=== PATIENT | female | born 1975 | race Caucasian/White ===

== ENCOUNTER 2022-08-29 11:35 | Observation (INO) | payer BC ==
[2022-08-29] MEDS ORDERED: ASPIRIN 81 MG PO STA (12:03)
--- NOTE | 2022-08-29 12:08 | ED ---
General Adult HPI - General Chief complaint: Chest Pain Stated complaint: chest pain Time Seen by Provider: 08/29/22 11:56 Source: patient, RN notes reviewed, old records reviewed Mode of arrival: wheelchair Limitations: no limitations - History of Present Illness Initial comments: This is a nontoxic appearing tearful 46-year-old female that presents with complaints of sudden onset of sharp stabbing pain approximately an hour ago when at work. Patient states she became nauseated, no vomiting. Pain radiated to front of her neck and her left upper back. Currently pain under left breast. States that she history of TIA 2020 in [place] and GERD. No family history of cardiac disease, denies any difficulty breathing, is a nonsmoker. -: hour(s) (1) Location: chest Radiation: back, neck Severity scale (1-10): 5 Quality: stabbing, dull (Initially sharp and stabbing, now heaviness and dull) Consistency: constant Improves with: none Associated Symptoms: nausea/vomiting (no vomiting) Treatments Prior to Arrival: none - Related Data Home Medications Medication Instructions Recorded Confirmed Escitalopram [Lexapro] 10 mg PO DAILY 08/29/22 08/29/22 Famotidine [Pepcid] 20 mg PO BID 08/29/22 08/29/22 Allergies Allergy/AdvReac Type Severity Reaction Status Date / Time No Known Allergies Allergy Verified 08/29/22 13:13 Review of Systems ROS Statement: Those systems with pertinent positive or pertinent negative responses have been documented in the HPI. ROS Other: All systems not noted in ROS Statement are negative. Past Medical History Past Medical History: CVA/TIA History of Any Multi-Drug Resistant Organisms: None Reported Past Surgical History: Cholecystectomy, Tubal Ligation Past Psychological History: No Psychological Hx Reported Smoking Status: Never smoker Past Alcohol Use History: None Reported Past Drug Use History: None Reported General Exam Limitations: no limitations General appearance: alert, in no apparent distress Head exam: Present: atraumatic Eye exam: Absent: scleral icterus, periorbital swelling ENT exam: Present: mucous membranes moist Neck exam: Present: normal inspection. Absent: tenderness, meningismus Respiratory exam: Present: normal lung sounds bilaterally. Absent: respiratory distress, wheezes, rales, rhonchi, stridor, accessory muscle use Cardiovascular Exam: Present: regular rate GI/Abdominal exam: Present: soft, normal bowel sounds. Absent: distended, tenderness, guarding, rebound, rigid Extremities exam: Present: normal capillary refill. Absent: pedal edema Back exam: Absent: tenderness, CVA tenderness (R), CVA tenderness (L), rash noted Neurological exam: Present: alert, oriented X3 Psychiatric exam: Present: normal affect, normal mood (tearful) Skin exam: Present: warm, dry, normal color. Absent: cyanosis, diaphoretic, petechiae, pallor Course Vital Signs 08/29/22 08/29/22 08/29/22 11:37 12:17 13:51 Temperature 97.4 F L Pulse Rate 70 74 84 Pulse Rate [ 74 Mounter Saxophones ] Respiratory 22 18 18 Rate Blood Pressure 161/99 138/95 112/71 Blood Pressure [Right Arm] O2 Sat by Pulse 99 98 94 L Oximetry 08/29/22 08/29/22 14:31 14:40 Temperature 98.1 F 97.9 F Pulse Rate 76 Pulse Rate [ 71 Mounter Saxophones ] Respiratory 18 16 Rate Blood Pressure 118/80 Blood Pressure 110/71 [Right Arm] O2 Sat by Pulse 97 94 L Oximetry EKG Findings - EKG Results: EKG: sinus rhythm (Ventricular rate 67, MN interval 0.45, QRS 0.91, QTC 0.465; normal axis; T wave inversions V1,V2, V3, no old EKG to compare) Medical Decision Making - Medical Decision Making Patient complained of stabbing chest pain radiating to neck and back with nausea lasting more than 20 minutes. EKG shows T-wave inversions in V1, V2, V3, no old EKG to compare. She'll be placed in observation and cardiology consult. I discussed with Dr. mcclellan Was pt. sent in by a medical professional or institution? @ -No Did you speak to anyone other than the patient for history? @ -No Did you review nursing and triage notes? @ -Yes I agree Were old charts reviewed? @ -No Differential Diagnosis? @ -Differential Chest Pain: Stable Angina, Unstable Angina, STEMI, NSTEMI Aortic Dissection, Pneumothorax, Musculoskeletal, Esophageal Spasm GERD, Cholecystitis, Pancreatitis, Zoster, this is not meant to be an all-inclusive list. EKG interpreted by me (3pts min.)? @ -Yes as above X-rays interpreted by me (1pt min.)? @ Chest x-ray interpreted by me shows no evidence of consolidation, heart normal size no evidence of tracheal deviation. Radiologist interpretation no a cute process. What testing was considered but not performed? (CT, X-rays, U/S, labs)? Why? @None What meds were considered but not given? Why? @ -Heparin was considered, patient has no active chest pain at this time, low heart score, no cardiac history Did you discuss the management of the patient with other professionals? @ -no Did you reconcile home meds? @ -Yes Was smoking cessation discussed for >3mins.? @ -No Was critical care preformed (if so, how long)? @ -No Were there social determinants of health that impacted care today? How? (Homelessness, low income, unemployed, alcoholism, drug addiction, transportation, low edu. Level, literacy, decrease access to med. care, [facility], rehab)? @ -None Was there de-escalation of care discussed even if they declined? (Discuss DNR or withdrawal of care, Hospice)? @ -No What co-morbidities impacted this encounter? (DM, HTN, Smoking, COPD, CAD, Cancer, CVA, Hep., AIDS, mental health diagnosis, sleep apnea, morbid obesity)? @ -TIA Was patient admitted / discharged? @ -Admitted Undiagnosed new problem with uncertain prognosis? @ -[none] Drug Therapy requiring intensive monitoring for toxicity (Heparin, Nitro, Insulin, Cardizem)? @ -[none] Were any procedures done? @ -No Diagnosis/symptom? @ -Chest pain Acute, or Chronic, or Acute on Chronic? @ -Acute Uncomplicated (without systemic symptoms) or Complicated (systemic symptoms)? @ -Uncomplicated Side effects of treatment? @ -[none] Exacerbation, Progression, or Severe Exacerbation] @ -[no] Poses a threat to life or bodily function? @ -[no] - Lab Data Result diagrams: 08/29/22 11:52 08/29/22 11:52 Lab Results 08/29/22 08/29/22 08/29/22 Range/Units 11:52 11:52 11:52 WBC 6.1 (3.8-10.6) k/uL RBC 4.98 (3.80-5.40) m/uL Hgb 15.4 (11.4-16.0) gm/dL Hct 44.7 (34.0-46.0) % MCV 89.8 (80.0-100.0) fL MCH 30.9 (25.0-35.0) pg MCHC 34.4 (31.0-37.0) g/dL RDW 12.2 (11.5-15.5) % Plt Count 294 (150-450) k/uL MPV 7.5 Neutrophils % 58 % Lymphocytes % 31 % Monocytes % 5 % Eosinophils % 4 % Basophils % 1 % Neutrophils # 3.6 (1.3-7.7) k/uL Lymphocytes # 1.9 (1.0-4.8) k/uL Monocytes # 0.3 (0-1.0) k/uL Eosinophils # 0.2 (0-0.7) k/uL Basophils # 0.0 (0-0.2) k/uL PT 10.0 (9.0-12.0) sec INR 0.9 (<1.2) APTT 25.6 (22.0-30.0) sec Sodium (137-145) mmol/L Potassium (3.5-5.1) mmol/L Chloride (98-107) mmol/L Carbon Dioxide (22-30) mmol/L Anion Gap mmol/L BUN (7-17) mg/dL Creatinine (0.52-1.04) mg/dL Est GFR (CKD-EPI)AfAm (>60 ml/min/1.73 sqM) Est GFR (CKD-EPI)NonAf (>60 ml/min/1.73 sqM) Glucose (74-99) mg/dL Calcium (8.4-10.2) mg/dL Magnesium (1.6-2.3) mg/dL Total Bilirubin (0.2-1.3) mg/dL AST (14-36) U/L ALT (4-34) U/L Alkaline Phosphatase (38-126) U/L Troponin I (0.000-0.034) ng/mL Total Protein (6.3-8.2) g/dL Albumin (3.5-5.0) g/dL Amylase (30-110) U/L Lipase (23-300) U/L Urine Color Colorless Urine Appearance Clear (Clear) Urine pH 5.5 (5.0-8.0) Ur Specific [place] 1.004 (1.001-1.035) Urine Protein Negative (Negative) Urine Glucose (UA) Negative (Negative) Urine Ketones Negative (Negative) Urine Blood Negative (Negative) Urine Nitrite Negative (Negative) Urine Bilirubin Negative (Negative) Urine Urobilinogen <2.0 (<2.0) mg/dL Ur Leukocyte Esterase Negative (Negative) 08/29/22 08/29/22 Range/Units 11:52 11:52 WBC (3.8-10.6) k/uL RBC (3.80-5.40) m/uL Hgb (11.4-16.0) gm/dL Hct (34.0-46.0) % MCV (80.0-100.0) fL MCH (25.0-35.0) pg MCHC (31.0-37.0) g/dL RDW (11.5-15.5) % Plt Count (150-450) k/uL MPV Neutrophils % % Lymphocytes % % Monocytes % % Eosinophils % % Basophils % % Neutrophils # (1.3-7.7) k/uL Lymphocytes # (1.0-4.8) k/uL Monocytes # (0-1.0) k/uL Eosinophils # (0-0.7) k/uL Basophils # (0-0.2) k/uL PT (9.0-12.0) sec INR (<1.2) APTT (22.0-30.0) sec Sodium 138 (137-145) mmol/L Potassium 4.0 (3.5-5.1) mmol/L Chloride 104 (98-107) mmol/L Carbon Dioxide 29 (22-30) mmol/L Anion Gap 5 mmol/L BUN 14 (7-17) mg/dL Creatinine 0.73 (0.52-1.04) mg/dL Est GFR (CKD-EPI)AfAm >90 (>60 ml/min/1.73 sqM) Est GFR (CKD-EPI)NonAf >90 (>60 ml/min/1.73 sqM) Glucose 89 (74-99) mg/dL Calcium 8.9 (8.4-10.2) mg/dL Magnesium 2.0 (1.6-2.3) mg/dL Total Bilirubin 0.5 (0.2-1.3) mg/dL AST 33 (14-36) U/L ALT 46 H (4-34) U/L Alkaline Phosphatase 78 (38-126) U/L Troponin I <0.012 (0.000-0.034) ng/mL Total Protein 7.2 (6.3-8.2) g/dL Albumin 4.2 (3.5-5.0) g/dL Amylase 82 (30-110) U/L Lipase 138 (23-300) U/L Urine Color Urine Appearance (Clear) Urine pH (5.0-8.0) Ur Specific [place] (1.001-1.035) Urine Protein (Negative) Urine Glucose (UA) (Negative) Urine Ketones (Negative) Urine Blood (Negative) Urine Nitrite (Negative) Urine Bilirubin (Negative) Urine Urobilinogen (<2.0) mg/dL Ur Leukocyte Esterase (Negative) Disposition Clinical Impression: Chest pain Disposition: ADMITTED IP TO THIS [facility] Decision Date: 08/29/22 Decision Time: 12:54
[2022-08-29 12:11] LABS: Basophils % (A) 1 %; Eosinophils # (A) 0.2 k/uL (0-0.7); Eosinophils % (A) 4 %; HCT 44.7 % (34.0-46.0); HGB 15.4 gm/dL (11.4-16.0); Lymphocytes # (A) 1.9 k/uL (1.0-4.8); Lymphocytes % (A) 31 %; MCH 30.9 pg (25.0-35.0); MCHC 34.4 g/dL (31.0-37.0); MCV 89.8 fL (80.0-100.0); Mean Platelet Volume 7.5; Monocytes # (A) 0.3 k/uL (0-1.0); Monocytes % (A) 5 %; Neutrophils # (A) 3.6 k/uL (1.3-7.7); Neutrophils % (A) 58 %; Platelet Count 294 k/uL (150-450); RBC 4.98 m/uL (3.80-5.40); RDW 12.2 % (11.5-15.5); WBC 6.1 k/uL (3.8-10.6)
[2022-08-29] MEDS ORDERED: NITROGLYCERIN OINT 1 INCH/GM PACKET TOPICAL STA (12:16)
[2022-08-29 12:31] LABS: ALT 46 U/L (4-34); AST 33 U/L (14-36); African American GFR (CKD) >90 (>60 ml/min/1.73 sqM); Albumin 4.2 g/dL (3.5-5.0); Alkaline Phosphatase 78 U/L (38-126); Amylase 82 U/L (30-110); Anion Gap 5 mmol/L; Blood Urea Nitrogen 14 mg/dL (7-17); Calcium 8.9 mg/dL (8.4-10.2); Carbon Dioxide 29 mmol/L (22-30); Chloride 104 mmol/L (98-107); Glucose 89 mg/dL (74-99); Lipase 138 U/L (23-300); Non-African American GFR(CKD) >90 (>60 ml/min/1.73 sqM); Sodium 138 mmol/L (137-145); Total Bilirubin 0.5 mg/dL (0.2-1.3); Total Protein 7.2 g/dL (6.3-8.2)
[2022-08-29 12:35] LABS: INR 0.9 (<1.2); Partial Thromboplastin Time 25.6 sec (22.0-30.0)
[2022-08-29 12:46] LABS: Appearance,Urine Clear (Clear); Bilirubin,Urine Negative (Negative); Blood,Urine Negative (Negative); Color,Urine Colorless; Glucose,Urine (UA) Negative (Negative); Ketones,Urine Negative (Negative); Leukocyte Esterase,Urine Negative (Negative); Nitrite,Urine Negative (Negative); PH, Urine 5.5 (5.0-8.0); Protein,Urine Negative (Negative); Specific Gravity,Urine 1.004 (1.001-1.035); Urobilinogen,Urine <2.0 mg/dL (<2.0)
--- NOTE | 2022-08-29 12:47 | XR ---
EXAMINATION TYPE: XR chest 2V DATE OF EXAM: 08/29/2022 COMPARISON: NONE TECHNIQUE: PA and lateral views submitted. HISTORY: Left side chest pain FINDINGS: The lungs are clear and there is no pneumothorax, pleural effusion, or focal pneumonia. Heart size normal and no overt failure. Osseous structures demonstrate hypertrophic and degenerative changes of the spine. IMPRESSION: 1. No acute process.
[2022-08-29] MEDS ORDERED: NALOXONE 0.4 MG/ML 1 ML VIAL IV PRN (12:54)
[2022-08-29] MEDS ORDERED: PANTOPRAZOLE 40 MG/10 ML VIAL IV SCH (13:00)
[2022-08-29] MEDS: ACETAMINOPHEN TAB 325 MG TAB PO PRN ×2 (13:54→23:01)
--- NOTE | 2022-08-29 17:49 | P.HPIM ---
History of Present Illness H&P Date: 08/29/22 Chief Complaint: Chest pain This is a very pleasant 46-year-old patient follows with Dr. Cherry franco. Takes medication for anxiety and reflux. Patient is just had an ultrasound of the lower abdomen to rule out diverticulosis/screening for cancer. Is a bit anxious about the same. This morning she was at her desk when she suddenly felt a very sharp pain in the clavicle area. Also into her jaw. And heaviness that lasted. Fingertips became numb. There is no perspiration or shortness of breath. Symptoms lasted for about an hour. No dizziness no lightheadedness. Denies lifting any heavy. Patient does get bothered by significant reflux. Has put on some weight rec ently. No prior cardiac history. Fair exercise tolerance. Review of systems: GEN.: None EYES: None HEENT: None NECK: None RESPIRATORY: None CARDIOVASCULAR: As above GASTROINTESTINAL: Uncontrolled reflux GENITOURINARY: None MUSCULOSKELETAL: None LYMPHATICS: None HEMATOLOGICAL: None PSYCHIATRY: Anxious NEUROLOGICAL: None Past medical history to include: Anxiety, panic attack, reflux Social history: . 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 No smoking or alcohol. Physical examination: VITAL SIGNS: 97.9, 71, 16, 110/71, 94% room air GENERAL: Average built, sitting up, comfortable. EYES: Pupils equal. Conjunctiva normal. HEENT: External appearance of nose and ears normal, oral cavity grossly normal. NECK: JVD not raised; masses not palpable. HEART: First and second heart sounds are normal; no edema. LUNGS: Respiratory rate normal; clear to auscultation. ABDOMEN: Soft, nontender, liver spleen not palpable, no masses palpable. PSYCH: Alert and oriented x3; mood and affect normal. MUSCULOSKELETAL:No Clubbing/cyanosis;muscles-grossly intact NEUROLOGICAL: Cranial nerves grossly intact; no facial asymmetry, power and sensation grossly intact. LYMPHATICS: No lymph nodes palpable in the axilla and neck INVESTIGATIONS, reviewed in the clinical context: White count 6.1 hemoglobin 15.4 platelets 294 potassium 4 creatinine 0.73 Troponin I 2 less than 0.012 EKG tracing personally reviewed by me-low QRS voltage. Sinus rhythm. Rate 67. Chest x-ray film personally reviewed by me: Lung michelle clear Assessment and plan: -Anterior chest wall pain. Could be muscular schedule. Could be anxiety attack. Rule out a cardiac cause. Initial troponin 2 negative. Telemetry. Consult cardiology -GERD, uncontrolled Change Pepcid to Protonix. Discussed with patient. Outpatient EGD. -Anxiety disorder not otherwise specified Lexapro Protonix. Aspirin. Telemetry. Cartilage E consult. Discussed with the patient daughter the bedside. Questions answered. Past Medical History Past Medical History: CVA/TIA History of Any Multi-Drug Resistant Organisms: None Reported Past Surgical History: Cholecystectomy, Tubal Ligation Past Psychological History: No Psychological Hx Reported Smoking Status: Never smoker Past Alcohol Use History: None Reported Past Drug Use History: None Reported Medications and Allergies Home Medications Medication Instructions Recorded Confirmed Type Escitalopram [Lexapro] 10 mg PO DAILY 08/29/22 08/29/22 History Famotidine [Pepcid] 20 mg PO BID 08/29/22 08/29/22 History Allergies Allergy/AdvReac Type Severity Reaction Status Date / Time No Known Allergies Allergy Verified 08/29/22 13:13 Physical Exam Vitals: Vital Signs Temp Pulse Pulse Resp BP BP Pulse Ox 08/29/22 14:40 97.9 F 71 16 110/71 94 L 08/29/22 14:31 98.1 F 76 18 118/80 97 08/29/22 13:51 84 18 112/71 94 L 08/29/22 12:17 74 74 18 138/95 98 08/29/22 11:37 97.4 F L 70 22 161/99 99 Intake and Output 08/29/22 08/29/22 08/29/22 06:59 14:59 22:59 Other: # Voids 1 Weight 81.647 kg 81.647 kg Results CBC & Chem 7: 08/29/22 11:52 08/29/22 11:52 Labs: Abnormal Lab Results - Last 24 Hours (Table) 08/29/22 Range/Units 11:52 ALT 46 H (4-34) U/L Thrombosis Risk Factor Assmnt - Choose All That Apply Any of the Below Risk Factors Present?: Yes Each Factor Represents 1 point: Age 41-60 years, Obesity (BMI >25) Other Risk Factors: No Thrombosis Risk Factor Assessment Total Risk Factor Score: 2 Thrombosis Risk Factor Assessment Level: Low Risk
[2022-08-29] MEDS: PANTOPRAZOLE 40 MG TABLET PO SCH (19:18)
[2022-08-30 03:00] VITALS: RESP 16
[2022-08-30] MEDS: PANTOPRAZOLE 40 MG TABLET PO SCH (06:08)
--- NOTE | 2022-08-30 07:06 | CA ---
Transthoracic Echo Report Name: Isis Bender Age: 46 Gender: F : 1975 Exam Date: 08/29/2022 14:06 Exam Location: [facility] Ht (in): 67 Wt (lb): 180 Ordering Physician: Sin Jones Attending/Referring Phys: Shop Fitter Jane Dueñas RDCS Procedure CPT: Indications: Chest Pain Cardiac Hx: Technical Quality: Contrast 1: Total Dose (mL): Contrast 2: Total Dose (mL): MEASUREMENTS (Male / Female) Normal Values 2D ECHO LV Diastolic Diameter PLAX 4.3 cm 4.2 - 5.9 / 3.9 - 5.3 cm LV Systolic Diameter PLAX 3.3 cm IVS Diastolic Thickness 1.1 cm 0.6 - 1.0 / 0.6 - 0.9 cm LVPW Diastolic Thickness 1.7 cm 0.6 - 1.0 / 0.6 - 0.9 cm LV Relative Wall Thickness 0.6 RV Internal Dim ED PLAX 3.3 cm LA Systolic Diameter LX 3.4 cm 3.0 - 4.0 / 2.7 - 3.8 cm M-MODE Aortic Root Diameter MM 2.8 cm LA Systolic Diameter MM 3.6 cm LA Ao Ratio MM 1.3 MV E Point Septal Separation 0.4 cm AV Cusp Separation MM 2.1 cm DOPPLER MV Area PHT 3.0 cm??? Mitral E Point Velocity 53.9 cm/s Mitral A Point Velocity 86.7 cm/s Mitral E to A Ratio 0.6 MV Deceleration Time 254.8 ms MV E' Velocity 6.6 cm/s Mitral E to MV E' Ratio 8.2 FINDINGS Left Ventricle Mildly increased septal wall thickness. Left ventricular cavity size normal. Left ventricular ejection fraction is estimated at 55 %. Right Ventricle Normal right ventricular size and function. Right ventricular systolic pressure within normal limits. Right Atrium Normal right atrial size. Left Atrium Normal left atrial size. Mitral Valve Structurally normal mitral valve. Mild mitral regurgitation. Aortic Valve Trileaflet aortic valve. Tricuspid Valve Structurally normal tricuspid valve. Mild tricuspid regurgitation. Pulmonic Valve Structurally normal pulmonic valve. Pericardium Echo free space anterior to the right ventricle likely represents a fat pad. Aorta Normal size aortic root and proximal ascending aorta. CONCLUSIONS Normal LV size and systolic function. Mild mitral and tricuspid insufficiency. No pericardial effusion Previewed by: Dr. Zafar Castle MD (Electronically Signed) Final Date: 30 August 2022 07:06
[2022-08-30 07:37] VITALS: PULSE 66; TEMP 98.1
[2022-08-30] MEDS ORDERED: SODIUM CHLORIDE 0.9% 1,000 ML IV SCH (08:30)
[2022-08-30] MEDS ORDERED: ASPIRIN 81 MG PO SCH (09:00)
[2022-08-30] MEDS ORDERED: ESCITALOPRAM 10 MG TAB PO SCH (09:00)
[2022-08-30] MEDS: ACETAMINOPHEN TAB 325 MG TAB PO PRN (09:23)
--- NOTE | 2022-08-30 09:32 | P.CRDCN ---
History of Present Illness Consult date: 08/30/22 Consult reason: chest pain History of present illness: History of present illness: This is a 46-year-old female with no previous cardiac history. She has never had a cardiac catheterization nor stress test. She has a past medical history significant for TIA in October 2020 in [place]. She states the cause was not identified. She also has a past medical history of GERD and depression. No history of diabetes. Patient states that she was sitting at her desk at work and felt heaviness in her mid chest that went up into her neck and felt like her neck was being squeezed. EKG nonspecific changes T wave abnormality 2 Echocardiogram reveals EF of 55%. Mild mitral and tricuspid insufficiency. Chest x-ray: No acute process CBC, INR, BMP within normal limits. ALT 46. Troponin negative 2. Lipase 138. Urinalysis negative. No home cardiac medications Review Of Systems: At the time of my evaluation: Constitutional: No fever, no chills. No weakness, fatigue or lethargy. EENT: No headache. No dizziness. Lungs: No shortness of breath, cough, no sputum production. No wheezing. Cardiovascular: No chest pain, no lower extremity edema. No palpitations. No paroxysmal nocturnal dyspnea. No orthopnea. No lightheadedness or dizziness. No syncopal episodes. Abdominal: No abdominal pain. No nausea, vomiting. No diarrhea. No constipation. No bloody or tarry stools. Genitourinary: No dysuria.. No urinary retention. Musculoskeletal: No myalgias. No muscle weakness, no frequent falls. No back pain. No neck pain. Integumentary: No wounds. No rash. No unusual bruising. Neurologic: No aphasia. No facial droop. No change in mentation. No head injury. No headache. Psychiatric: No depression. No anxiety. Endocrine: No abnormal blood sugars. Physical examination: Gen: This is an obese 46-year-old female. She sitting up her recliner and appears comfortable and in no acute distress VS: reviewed HEENT: Head is atraumatic, normocephalic. Pupils equal, round. Sclerae is anicteric. NECK: Supple. No JVD. No lymphadenopathy. No thyromegaly. LUNGS: Clear to auscultation. No wheezes or rhonchi. No intercostal retractions. HEART: Regular rate and rhythm. No murmur. ABDOMEN: Soft. Bowel sounds are present. No masses. No tenderness. EXTREMITIES: No pedal edema. No calf tenderness. NEUROLOGICAL: Patient is awake, alert and oriented x3. Cranial nerves 2 through 12 are grossly intact. Assessment: Chest pain with negative troponins, nonspecific T-wave abnormalities, acute coronary syndrome ruled out Gastroesophageal reflux disease Plan: Start patient on IV fluids 0.9 normal saline at 100 mL/h Obtain stress echo today If stress test is within normal limits, patient is cleared for discharge home today Thank you kindly for this consultation. Nurse practitioner note has been reviewed, I agree with documented findings and plan of care. Patient was seen and examined. Past Medical History Past Medical History: CVA/TIA History of Any Multi-Drug Resistant Organisms: None Reported Past Surgical History: Cholecystectomy, Tubal Ligation Past Psychological History: No Psychological Hx Reported Smoking Status: Never smoker Past Alcohol Use History: None Reported Past Drug Use History: None Reported Medications and Allergies Home Medications Medication Instructions Recorded Confirmed Type Escitalopram [Lexapro] 10 mg PO DAILY 08/29/22 08/29/22 History Famotidine [Pepcid] 20 mg PO BID 08/29/22 08/29/22 History Allergies Allergy/AdvReac Type Severity Reaction Status Date / Time No Known Allergies Allergy Verified 08/29/22 13:13 Physical Exam Vitals: Vital Signs Temp Pulse Pulse Resp BP BP Pulse Ox 08/30/22 07:00 98.1 F 66 16 105/70 95 08/30/22 02:46 98.2 F 51 L 16 97/59 92 L 08/29/22 20:00 98.2 F 72 18 107/73 96 08/29/22 14:40 97.9 F 71 16 110/71 94 L 08/29/22 14:31 98.1 F 76 18 118/80 97 08/29/22 13:51 84 18 112/71 94 L 08/29/22 12:17 74 74 18 138/95 98 08/29/22 11:37 97.4 F L 70 22 161/99 99 Intake and Output 08/29/22 08/30/22 08/30/22 22:59 06:59 14:59 Other: # Voids 1 2 Weight 81.647 kg Results 08/29/22 11:52 01/10/23 11:52 Cardiac Enzymes 08/29/22 08/29/22 08/29/22 Range/Units 11:52 11:52 15:04 AST 33 (14-36) U/L Troponin I <0.012 <0.012 (0.000-0.034) ng/mL Coagulation 08/29/22 Range/Units 11:52 PT 10.0 (9.0-12.0) sec APTT 25.6 (22.0-30.0) sec CBC 08/29/22 Range/Units 11:52 WBC 6.1 (3.8-10.6) k/uL RBC 4.98 (3.80-5.40) m/uL Hgb 15.4 (11.4-16.0) gm/dL Hct 44.7 (34.0-46.0) % Plt Count 294 (150-450) k/uL Comprehensive Metabolic Panel 08/29/22 Range/Units 11:52 Sodium 138 (137-145) mmol/L Potassium 4.0 (3.5-5.1) mmol/L Chloride 104 (98-107) mmol/L Carbon Dioxide 29 (22-30) mmol/L BUN 14 (7-17) mg/dL Creatinine 0.73 (0.52-1.04) mg/dL Glucose 89 (74-99) mg/dL Calcium 8.9 (8.4-10.2) mg/dL AST 33 (14-36) U/L ALT 46 H (4-34) U/L Alkaline Phosphatase 78 (38-126) U/L Total Protein 7.2 (6.3-8.2) g/dL Albumin 4.2 (3.5-5.0) g/dL Current Medications Generic Name Dose Route Start Last Admin Trade Name Freq PRN Reason Stop Dose Admin Acetaminophen 650 mg 08/29/22 12:54 08/29/22 23:01 Acetaminophen Tab 325 Mg Tab PO 650 mg Q6HR PRN Administration Mild Pain or Fever > 100.5 Aspirin 81 mg 08/30/22 09:00 Aspirin 81 Mg PO DAILY [facility] Escitalopram Oxalate 10 mg 08/30/22 09:00 Escitalopram 10 Mg Tab PO DAILY [facility] Naloxone HCl 0.2 mg 08/29/22 12:54 Naloxone 0.4 Mg/Ml 1 Ml Vial IV Q2M PRN Opioid Reversal Pantoprazole Sodium 40 mg 08/29/22 18:00 08/30/22 06:08 Pantoprazole 40 Mg Tablet PO 40 mg AC-BID MARTIN Administration Intake and Output 08/29/22 08/30/22 08/30/22 22:59 06:59 14:59 Other: # Voids 1 2 Weight 81.647 kg 08/29/22 11:52 08/29/22 11:52
--- NOTE | 2022-08-30 13:11 | CA ---
Stress Echo Report Isis Bender Age: 46 Gender: F : 1975 Exam Date: 08/30/2022 11:26 Exam Location: [facility] Ht (in): 67 Wt (lb): 180 Ordering Physician: Eloisa Glover Referring Physician: [id number] Headley Rotary Cutter Feeder: RAMÓN Technologist Procedure CPT: Indication: CP ICD-9 Codes: Rhythm: Patient History: CHEST PAIN, NUMBNESS IN FACE/NECK PRIOR HX OF CVA, PRIOR SMOKER (QUIT 2 YEARS AGO) Cardiac Medications: Medications in past 24 hours: Contrast: Stress Results Protocol: Nicolas Total dose(mL): Exercise Duration (min:sec): 7:[address] Depression (mm): Angina Score: Cole Score: METS: 9.1 Resting HR: 95 Resting BP: 104 / 72 Peak HR: 157 Peak BP: 151 / 65 Max Predicted HR: 173 91 % Max Predicted HR Target HR: 147 Double Product: [id number] Stress Summary: BP Response: Reason for Termination: TARGET HR/PEAK EXERTION Cardiac Symptoms: NO SYMPTOMS ECG Analysis Resting ECG: Stress ECG: Arrhythmia: Echo Analysis Resting Echo: Peak Echo Analysis: MEASUREMENTS (Male/Female) Normal Values CONCLUSIONS Baseline EKG revealed normal sinus rhythm without significant ST-T changes patient walked for 7 minutes 39 seconds and achieved a maximal heart rate of 157 bpm which is more than 90% of predicted maximal. She did not have any angina. There was no arrhythmia there were no EKG changes to indicate ischemia. This is a negative stress test by EKG criteria with mild T-wave changes to begin with. Baseline echo images revealed normal wall motion wall thickening of all segments. At peak exercise there was good augmentation of left ventricular wall motion wall thickening of all segments suggesting that there is no evidence of any stress-induced ischemia on this study Dr. Zafar Castle MD (Electronically Signed) Final Date: 30 August 2022 13:10
[2022-08-30 14:31] VITALS: BP 113/78
--- NOTE | 2022-08-30 17:31 | P.DS ---
Providers Date of admission: 08/29/22 12:41 Expected date of discharge: 08/30/22 Attending physician: Scott Johnson Consults: 08/29/22 12:54 Consult Physician Routine Consulting Provider: Refugio Ponce Consult Reason/Comments: chest pain Do you want consulting provider notified?: Yes, Notify in am Primary care physician: Cherry Batres [facility] Course: Chief Complaint: Chest pain This is a very pleasant 46-year-old patient follows with Dr. Cherry franco. Takes medication for anxiety and reflux. Patient is just had an ultrasound of the lower abdomen to rule out diverticulosis/screening for cancer. Is a bit anxious about the same. This morning she was at her desk when she suddenly felt a very sharp pain in the clavicle area. Also into her jaw. And heaviness that lasted. Fingertips became numb. There is no perspiration or shortness of breath. Symptoms lasted for about an hour. No dizziness no lightheadedness. Denies lifting any heavy. Patient does get bothered by significant reflux. Has put on some weight recently. No prior cardiac history. Fair exercise tolerance. 08/30/2022:. In bed. Comfortable. No further chest pain. Chest echocardiogram was negative. Pain felt to be muscular skeletal. Past medical history to include: Anxiety, panic attack, reflux Social history: . 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 No smoking or alcohol. Physical examination: VITAL SIGNS: 98.1, 66, 16, 113/78, 97% room air GENERAL: In bed, comfortable EYES: Pupils equal. Conjunctiva normal. HEENT: External appearance of nose and ears normal, oral cavity grossly normal. NECK: JVD not raised; masses not palpable. HEART: First and second heart sounds are normal; no edema. LUNGS: Respiratory rate normal; clear to auscultation. ABDOMEN: Soft, nontender, liver spleen not palpable, no masses palpable. PSYCH: Alert and oriented x3; mood and affect normal. MUSCULOSKELETAL:No Clubbing/cyanosis;muscles-grossly intact INVESTIGATIONS, reviewed in the clinical context: Stress echocardiogram: Negative for ischemia 2-D echocardiogram: EF 55%. White count 6.1 hemoglobin 15.4 platelets 294 potassium 4 creatinine 0.73 Troponin I 2 less than 0.012 EKG tracing personally reviewed by me-low QRS voltage. Sinus rhythm. Rate 67. Chest x-ray film personally reviewed by me: Lung michelle clear Assessment and plan: -Anterior chest wall pain. Probably muscular skeletal. Seen by Dr. GREG Castle from cardiology. Stress echocardiogram negative. -GERD, uncontrolled Change Pepcid to Protonix. Discussed with patient. Outpatient EGD by Dr. Jemma Malhotra. -Anxiety disorder not otherwise specified Lexapro Disposition: Home Plan - Discharge Summary Discharge Rx Participant: No New Discharge Prescriptions: New Pantoprazole [Protonix] 40 mg PO AC-BID #60 tab Continue Escitalopram [Lexapro] 10 mg PO DAILY Discontinued Famotidine [Pepcid] 20 mg PO BID Discharge Medication List Escitalopram [Lexapro] 10 mg PO DAILY 08/29/22 [History] Pantoprazole [Protonix] 40 mg PO AC-BID #60 tab 08/30/22 [Rx] Follow up Appointment(s)/Referral(s): Zafar Castle MD [STAFF PHYSICIAN] - As Needed Corie Malhotra MD [STAFF PHYSICIAN] - 2 Weeks (GERD/EGD) Cherry Batres DO [Primary Care Provider] - 1 Week Patient Instructions/Handouts: Chest Pain (DC) Discharge Disposition: HOME SELF-CARE
== END 2022-08-30 14:31 | disposition home or self-care (01) ==
LOC: EC 11:35 → 6NMEDSUR 12:41
PROVIDERS: ADMIT Hospitalist; ATTEND Hospitalist
DX: R07.89 Other chest pain (principal); K21.9 Gastro-esophageal reflux disease without esophagitis; F32.A Depression, unspecified; F41.0 Panic disorder [episodic paroxysmal anxiety]; E66.9 Obesity, unspecified; Z86.73 Personal history of transient ischemic attack (TIA), and cerebral infarction without residual deficits; Z79.899 Other long term (current) drug therapy
CPT/HCPCS: 96374; 99285; 36415; 93005; 93306; 93351; 80053; 82150; 83690; 83735; 84484; 85025; 85610; 85730; 81003; 71046; G0378 ×2; C9113

== ENCOUNTER 2023-08-02 12:03 | Emergency (ER) | payer BC ==
--- NOTE | 2023-08-02 12:24 | ED ---
Headache HPI <Verena Perry - Last Filed: 08/02/23 13:52> <Agnieszka Matias - Last Filed: 08/02/23 17:53> - General Stated Complaint: dizziness/complications with vision Time Seen by Provider: 08/02/23 12:31 - History of Present Illness Initial Comments: The patient's 47-year-old female presents emergency room with an abrupt onset of visual changes in the right eye and right temporal head pain. States that she is seeing a waterfall in the right eye. (Verena Perry) Patient is a 39-year-old female with a history of migraines who does not currently follow with her neurologist and is currently not on any medications for migraines. She presents the ER today for evaluation of headache. Patient reports that on Sunday she had a similar headache but it did not persist that she did not come in for evaluation. Today she developed visual changes in the right eye describing it as a waterfall over her vision. She reports that her vision normalized and she then developed a headache around the right eye. She had no tearing and no rhinorrhea. She has no history of cluster headaches. She states that typically when she gets migraines that are occipital. Patient's had no recent illness fevers chills nausea or vomiting. (Agnieszka Matias) - Related Data Home Medications Medication Instructions Recorded Confirmed Escitalopram [Lexapro] 10 mg PO DAILY 08/29/22 08/29/22 Previous Rx's Medication Instructions Recorded Pantoprazole [Protonix] 40 mg PO AC-BID #60 tab 08/30/22 Allergies Allergy/AdvReac Type Severity Reaction Status Date / Time No Known Allergies Allergy Verified 08/02/23 12:25 Review of Systems ROS Other: All systems not noted in ROS Statement are negative. <Verena Perry - Last Filed: 08/02/23 13:52> ROS Other: All systems not noted in ROS Statement are negative. <Agnieszka Matias - Last Filed: 08/02/23 17:53> ROS Statement: Those systems with pertinent positive or pertinent negative responses have been documented in the HPI. Past Medical History Past Medical History: CVA/TIA History of Any Multi-Drug Resistant Organisms: None Reported Past Surgical History: Cholecystectomy, Tubal Ligation Past Psychological History: No Psychological Hx Reported Smoking Status: Never smoker Past Alcohol Use History: None Reported Past Drug Use History: None Reported <Verena Perry - Last Filed: 08/02/23 13:52> General Exam <Verena Perry - Last Filed: 08/02/23 13:52> Limitations: no limitations General appearance: alert, in no apparent distress Head exam: Present: atraumatic, normocephalic Eye exam: Present: PERRL ENT exam: Present: normal exam Respiratory exam: Absent: respiratory distress Cardiovascular Exam: Present: regular rate Rectal exam: Present: deferred Neurological exam: Present: alert, oriented X3, CN II-XII intact Psychiatric exam: Present: normal affect Skin exam: Present: warm, dry <Agnieszka Matias - Last Filed: 08/02/23 17:53> - General Exam Comments Initial Comments: Visual Physical Exam Vital signs reviewed General: Well-appearing, nontoxic, no acute distress. Head: Normocephalic, atraumatic Eyes: PERRLA, EOMI ENT: Airway patent Chest: Nonlabored breathing Skin: No visual rash, normal skin tone Neuro: Alert and oriented 3 Musculoskeletal: No gross abnormalities (Verena Perry) Course Vital Signs 08/02/23 08/02/23 12:21 16:47 Temperature 98.0 F Pulse Rate 83 55 L Respiratory 18 Rate Blood Pressure 109/77 117/79 O2 Sat by Pulse 98 Oximetry Medical Decision Making - Lab Data Result diagrams: 08/02/23 12:31 08/02/23 12:31 <Verena Perry - Last Filed: 08/02/23 13:52> - Lab Data Result diagrams: 08/02/23 12:31 08/02/23 12:31 <Agnieszka Matias - Last Filed: 08/02/23 17:53> - Medical Decision Making Quick note portion completed by myself, electronically signed PAC. Ivis (Verena Perry) Was pt. sent in by a medical professional or institution (, PA, RECEIVING DOCK CHECKER, urgent care, hospital, or [facility]...) When possible be specific @ -[No] Did you speak to anyone other than the patient for history (EMS, parent, family, police, friend...)? What history was obtained from this source @ -[No] Did you review nursing and triage notes (agree or disagree)? Why? @ -[I reviewed and agree with nursing and triage notes] Were old charts reviewed (outside hosp., previous admission, EMS record, old EKG, old radiological studies, urgent care reports/EKG's, [facility] records)? Report findings @ -[No old charts were reviewed] Differential Diagnosis (chest pain, altered mental status, abdominal pain women, abdominal pain men, vaginal bleeding, weakness, fever, dyspnea, syncope, headache, dizziness, GI bleed, back pain, seizure, CVA, palpatations, mental health)? @ - Differential Headache: Migraine, tension, cluster, carbon monoxide, central venous thrombosis, pension karma temporal arteritis, acute closure glaucoma, intercranial hemorrhage, mastoiditis, sinusitis, head injury, this is not meant to be an all-inclusive list. EKG interpreted by me (3pts min.). @ -None X-rays interpreted by me (1pt min.). @ -[None done] CT interpreted by me (1pt min.). @ -No masses or bleeds U/S interpreted by me (1pt. min.). @ -[None done] What testing was considered but not performed or refused? (CT, X-rays, U/S, labs)? Why? @ -[None] What meds were considered but not given or refused? Why? @ -[None] Did you discuss the management of the patient with other professionals (professionals i.e. , PA, RECEIVING DOCK CHECKER, lab, RT, psych nurse, social welfare administrator, felt hooker, teacher, vessel traffic officer, keycase assembler)? Give summary @ -[No] Was smoking cessation discussed for >3mins.? @ -[No] Was critical care preformed (if so, how long)? @ -[No] Were there social determinants of health that impacted care today? How? (Homelessness, low income, unemployed, alcoholism, drug addiction, transportation, low edu. Level, literacy, decrease access to med. care, half-way, rehab)? @ -[No] Was there de-escalation of care discussed even if they declined (Discuss DNR or withdrawal of care, Hospice)? DNR status @ -[No] What co-morbidities impacted this encounter? (DM, HTN, Smoking, COPD, CAD, Cancer, CVA, ARF, Chemo, Hep., AIDS, mental health diagnosis, sleep apnea, morbid obesity)? @ -[None] Was patient admitted / discharged? Hospital course, mention meds given and route, prescriptions, significant lab abnormalities, going to OR and other pertinent info. @ -Discharged The patient was seen and evaluated in triage labs were obtained and head CT was performed which showed no acute findings. Upon my evaluation the patient's vision had normalized she still had a mild headache she taken nothing for this headache she reported in the past she's been treated with Toradol was successful. Patient declined an IV and was comfortable with plan for IM Toradol. After receiving the Toradol patient reported that her headache was improving should like to be discharged home at this time. Patient currently doesn't have establish care with a neurologist but plans to follow up outpatient Undiagnosed new problem with uncertain prognosis? @ -[No] Drug Therapy requiring intensive monitoring for toxicity (Heparin, Nitro, Insulin, Cardizem)? @ -[No] Were any procedures done? @ -[No] Diagnosis/symptom? @ -Migraine with aura Acute, or Chronic, or Acute on Chronic? @ -Acute Uncomplicated (without systemic symptoms) or Complicated (systemic symptoms)? @ -Complicated Side effects of treatment? @ -[No] Exacerbation, Progression, or Severe Exacerbation? @ -[No] Poses a threat to life or bodily function? How? (Chest pain, [place], [place], pneumonia, PE, COPD, DKA, ARF, appy, cholecystitis, CVA, Diverticulitis, Homicidal, Suicidal, threat to staff... and all critical care pts) @ -[No] (Agnieszka Matias) - Lab Data Lab Results 08/02/23 08/02/23 Range/Units 12:31 12:31 WBC 7.2 (3.8-10.6) k/uL RBC 5.19 (3.80-5.40) m/uL Hgb 15.8 (11.4-16.0) gm/dL Hct 47.1 H (34.0-46.0) % MCV 90.6 (80.0-100.0) fL MCH 30.5 (25.0-35.0) pg MCHC 33.7 (31.0-37.0) g/dL RDW 12.3 (11.5-15.5) % Plt Count 298 (150-450) k/uL MPV 7.3 Neutrophils % 67 % Lymphocytes % 25 % Monocytes % 4 % Eosinophils % 2 % Basophils % 0 % Neutrophils # 4.8 (1.3-7.7) k/uL Lymphocytes # 1.8 (1.0-4.8) k/uL Monocytes # 0.3 (0-1.0) k/uL Eosinophils # 0.1 (0-0.7) k/uL Basophils # 0.0 (0-0.2) k/uL ESR 6 (0-20) mm/Hr Sodium 140 (137-145) mmol/L Potassium 4.1 (3.5-5.1) mmol/L Chloride 104 (98-107) mmol/L Carbon Dioxide 24 (22-30) mmol/L Anion Gap 12 mmol/L BUN 11 (7-17) mg/dL Creatinine 0.79 (0.52-1.04) mg/dL Est GFR (CKD-EPI)AfAm >90 (>60 ml/min/1.73 sqM) Est GFR (CKD-EPI)NonAf 90 (>60 ml/min/1.73 sqM) Glucose 108 H (74-99) mg/dL Calcium 10.1 (8.4-10.2) mg/dL Total Bilirubin 0.6 (0.2-1.3) mg/dL AST 28 (14-36) U/L ALT 24 (4-34) U/L Alkaline Phosphatase 70 (38-126) U/L Total Protein 6.9 (6.3-8.2) g/dL Albumin 4.2 (3.5-5.0) g/dL HCG, Quant <2.4 mIU/mL Disposition <Verena Perry - Last Filed: 08/02/23 13:52> Is patient prescribed a controlled substance at d/c from ED?: No <Agnieszka Matias - Last Filed: 08/02/23 17:53> Clinical Impression: Migraine with aura Disposition: HOME SELF-CARE Condition: Stable Instructions (If sedation given, give patient instructions): Migraine Headache (ED) Referrals: Cherry Batres DO [Primary Care Provider] - 1-2 days
[2023-08-02 13:02] LABS: Basophils % (A) 0 %; Eosinophils # (A) 0.1 k/uL (0-0.7); Eosinophils % (A) 2 %; HCT 47.1 % (34.0-46.0); HGB 15.8 gm/dL (11.4-16.0); Lymphocytes # (A) 1.8 k/uL (1.0-4.8); Lymphocytes % (A) 25 %; MCH 30.5 pg (25.0-35.0); MCHC 33.7 g/dL (31.0-37.0); MCV 90.6 fL (80.0-100.0); Mean Platelet Volume 7.3; Monocytes # (A) 0.3 k/uL (0-1.0); Monocytes % (A) 4 %; Neutrophils # (A) 4.8 k/uL (1.3-7.7); Neutrophils % (A) 67 %; Platelet Count 298 k/uL (150-450); RBC 5.19 m/uL (3.80-5.40); RDW 12.3 % (11.5-15.5); WBC 7.2 k/uL (3.8-10.6)
--- NOTE | 2023-08-02 13:02 | CT ---
EXAMINATION TYPE: CT brain wo con CT DLP: 1125 mGycm, Automated exposure control for dose reduction was used. DATE OF EXAM: 08/02/2023 12:56 PM COMPARISON: None. CLINICAL INDICATION:Female, 47 years old with history of headache, vision changes, TECHNIQUE: Brain: Axial CT images of the brain were obtained with coronal and sagittal reformats created and rev iewed. Contrast used: None. Oral contrast used: None. FINDINGS: Brain: Extra-axial spaces: No abnormal extra-axial fluid collections. Ventricular system: Within normal limits Cerebral parenchyma: No acute intraparenchymal hemorrhage or mass effect. The younger-white junction is well differentiated. Cerebellum: Unremarkable. Mass effect: No evidence of midline shift. Intracranial vasculature: unremarkable Soft tissues: Normal. Calvarium/osseous structures: No depressed skull fracture. Paranasal sinuses and mastoid air cells: Mild scattered paranasal sinus disease. Visualized orbits: Orbital contents are intact. IMPRESSION: No acute intracranial process.
[2023-08-02 13:24] LABS: ALT 24 U/L (4-34); AST 28 U/L (14-36); African American GFR (CKD) >90 (>60 ml/min/1.73 sqM); Albumin 4.2 g/dL (3.5-5.0); Alkaline Phosphatase 70 U/L (38-126); Anion Gap 12 mmol/L; Blood Urea Nitrogen 11 mg/dL (7-17); Calcium 10.1 mg/dL (8.4-10.2); Carbon Dioxide 24 mmol/L (22-30); Chloride 104 mmol/L (98-107); Glucose 108 mg/dL (74-99); Non-African American GFR(CKD) 90 (>60 ml/min/1.73 sqM); Potassium 4.1 mmol/L (3.5-5.1); Sodium 140 mmol/L (137-145); Total Bilirubin 0.6 mg/dL (0.2-1.3); Total Protein 6.9 g/dL (6.3-8.2)
[2023-08-02 13:37] LABS: HCG,Quantitative Serum <2.4 mIU/mL
[2023-08-02 15:11] LABS: Erythrocyte Sedimentation Rate 6 mm/Hr (0-20)
[2023-08-02] MEDS ORDERED: KETOROLAC 15 MG/ML 1 ML VIAL IM STA (16:51)
[2023-08-02 18:21] VITALS: BP 125/82; PULSE 60; RESP 15; TEMP 98.3
== END 2023-08-02 17:59 | disposition home or self-care (01) ==
LOC: EC 12:03
DX: G43.109 Migraine with aura, not intractable, without status migrainosus (principal)
CPT/HCPCS: 36415; 80053; 85652; 85025; 84702; 70450; 99284; 96372; J1885

== ENCOUNTER 2024-11-08 02:59 | Emergency (ER) | payer BC ==
[2024-11-08 03:08] VITALS: RESP 18; TEMP 98
--- NOTE | 2024-11-08 03:28 | ED ---
Chest Pain HPI - General Chief Complaint: Chest Pain Stated Complaint: Chest Pain, Left Arm Numbness Time Seen by Provider: 11/08/24 03:18 Source: patient - History of Present Illness Initial Comments: This patient is a 49-year-old woman who presents evaluation of chest pain that she woke up with approximately an hour and a half ago. She describes heavy feeling also radiation left arm. MD Complaint: chest pain Onset/Timin -: minutes(s) Onset: awoke with symptoms Pain Location: left chest Pain Radiation: LUE Severity: moderate Quality: dull Consistency: constant Improves With: nothing Worsens With: nothing Treatments Prior to Arrival: none - Related Data Home Medications Medication Instructions Recorded Confirmed Escitalopram [Lexapro] 10 mg PO DAILY 08/29/22 08/29/22 Previous Rx's Medication Instructions Recorded Pantoprazole [Protonix] 40 mg PO AC-BID #60 tab 08/30/22 Allergies Allergy/AdvReac Type Severity Reaction Status Date / Time No Known Allergies Allergy Verified 11/08/24 03:08 Review of Systems ROS Statement: Those systems with pertinent positive or pertinent negative responses have been documented in the HPI. ROS Other: All systems not noted in ROS Statement are negative. Constitutional: Denies: fever, chills Respiratory: Denies: cough, dyspnea Cardiovascular: Reports: as per HPI, chest pain. Denies: palpitations, orthopnea, edema, syncope Gastrointestinal: Denies: abdominal pain, nausea, vomiting, diarrhea Genitourinary: Denies: dysuria, hematuria Musculoskeletal: Denies: back pain Skin: Denies: rash Neurological: Denies: headache, weakness, numbness EKG Findings - EKG Results: EKG: interpreted by ENMA, sinus rhythm (Rate 71 bpm), normal axis, normal QRS - Blocks, Locke, Hypertrophy, ST Abn: Repolarization changes or abnormalities: nonspecific abnormality, ST segment, and/or T wave Past Medical History Past Medical History: CVA/TIA History of Any Multi-Drug Resistant Organisms: None Reported Past Surgical History: Cholecystectomy, Tubal Ligation Past Psychological History: Anxiety Smoking Status: Current every day smoker Past Alcohol Use History: None Reported Past Drug Use History: None Reported General Exam General appearance: alert, in no apparent distress Head exam: Present: atraumatic, normocephalic Eye exam: Present: normal appearance. Absent: scleral icterus, conjunctival injection ENT exam: Present: normal oropharynx Neck exam: Present: normal inspection Respiratory exam: Present: normal lung sounds bilaterally. Absent: respiratory distress, wheezes, rales, rhonchi, stridor, chest wall tenderness, accessory muscle use Cardiovascular Exam: Present: regular rate, normal rhythm, normal heart sounds. Absent: systolic murmur, diastolic murmur, rubs, gallop GI/Abdominal exam: Present: soft. Absent: distended, tenderness, guarding, rebound, rigid, mass Extremities exam: Present: normal inspection, normal capillary refill. Absent: pedal edema, calf tenderness Back exam: Present: normal inspection. Absent: CVA tenderness (R), CVA tenderness (L) Neurological exam: Present: alert Skin exam: Present: warm, dry, intact, normal color. Absent: rash Course Vital Signs 11/08/24 11/08/24 11/08/24 03:05 03:34 05:34 Temperature 98.0 F Pulse Rate 106 H 76 87 Respiratory 18 18 18 Rate Blood Pressure 115/81 117/83 105/87 O2 Sat by Pulse 97 98 Oximetry Chest Pain MDM - MDM The patient had chest x-ray that I interpreted as negative for acute infiltrate, no pneumothorax or congestive heart failure. Was pt. sent in by a medical professional or institution (, PA, FIELD IRONWORKER, urgent care, hospital, or senior living...) When possible be specific @ -[No] Did you speak to anyone other than the patient for history (EMS, parent, family, police, friend...)? What history was obtained from this source @ -[No] Did you review nursing and triage notes (agree or disagree)? Why? @ -[I reviewed and agree with nursing and triage notes] Were old charts reviewed (outside hosp., previous admission, EMS record, old EKG, old radiological studies, urgent care reports/EKG's, senior living records)? Report findings @ -[No old charts were reviewed] Differential Diagnosis (chest pain, altered mental status, abdominal pain women, abdominal pain men, vaginal bleeding, weakness, fever, dyspnea, syncope, headache, dizziness, GI bleed, back pain, seizure, CVA, palpatations, mental health, musculoskeletal)? @ -[Differential Chest Pain: Stable Angina, Unstable Angina, STEMI, NSTEMI Aortic Dissection, Pneumothorax, Musculoskeletal, Esophageal Spasm GERD, Cholecystitis, Pancreatitis, Zoster, this is not meant to be an all-inclusive list. ] EKG interpreted by me (3pts min.). @ -I interpreted as above X-rays interpreted by me (1pt min.). @ -[I interpreted as above CT interpreted by me (1pt min.). @ -[None done] U/S interpreted by me (1pt. min.). @ -[None done] What testing was considered but not performed or refused? (CT, X-rays, U/S, labs)? Why? @ -[None] What meds were considered but not given or refused? Why? @ -[None] Did you discuss the management of the patient with other professionals (professionals i.e. , PA, FIELD IRONWORKER, lab, RT, psych nurse, social services aide, epic cadence analyst, teacher, chief merchandising officer, case briefer)? Give summary @ -[No] Was smoking cessation discussed for >3mins.? @ -[No] Was critical care preformed (if so, how long)? @ -[No] Were there social determinants of health that impacted care today? How? ( Homelessness, low income, unemployed, alcoholism, drug addiction, transportation, low edu. Level, literacy, decrease access to med. care, [facility], rehab)? @ -[No] Was there de-escalation of care discussed even if they declined (Discuss DNR or withdrawal of care, Hospice)? DNR status @ -[No] What co-morbidities impacted this encounter? (DM, HTN, Smoking, COPD, CAD, Cancer, CVA, ARF, Chemo, Hep., AIDS, mental health diagnosis, sleep apnea, morbid obesity)? @ -[None] Was patient admitted / discharged? Hospital course, mention meds given and route, prescriptions, significant lab abnormalities, going to OR and other pertinent info. @ -[Patient is 49-year-old woman presenting with episode of chest pain that started while she was sleeping. Her initial workup is negative. Offered admission to have serial cardiac enzymes, telemetry monitoring, cardiology consultation but the patient is feeling better and at this point stable to have further evaluation as outpatient. She does want to go home. Undiagnosed new problem with uncertain prognosis? @ -[No] Drug Therapy requiring intensive monitoring for toxicity (Heparin, Nitro, Insulin, Cardizem)? @ -[No] Were any procedures done? @ -[No] Diagnosis/symptom? @ -[Acute chest pain Acute, or Chronic, or Acute on Chronic? @ -[Acute Uncomplicated (without systemic symptoms) or Complicated (systemic symptoms)? @ -[Uncomplicated Side effects of treatment? @ -[No] Exacerbation, Progression, or Severe Exacerbation? @ -[No] Poses a threat to life or bodily function? How? (Chest pain, [place], [place], pneumonia, PE, COPD, DKA, ARF, appy, cholecystitis, CVA, Diverticulitis, Homicidal, Suicidal, threat to staff... and all critical care pts) @ -[No] All treatments are based on ideal body weight as in ED triage Disposition Clinical Impression: Chest pain Disposition: HOME SELF-CARE Condition: Good Instructions (If sedation given, give patient instructions): Chest Pain (ED) Is patient prescribed a controlled substance at d/c from ED?: No Referrals: Cherry Batres DO [Primary Care Provider] - 1-2 days Refugio Ponec MD [STAFF PHYSICIAN] - 1-2 days
[2024-11-08] MEDS: ASPIRIN 81 MG PO STA (03:30)
[2024-11-08] MEDS: NITROGLYCERIN SL TABS 0.4 MG TAB SUBLINGUAL STA (03:31)
[2024-11-08 04:16] LABS: Basophils % (A) 0 %; Eosinophils # (A) 0.2 k/uL (0-0.7); Eosinophils % (A) 3 %; HCT 45.9 % (34.0-46.0); HGB 15.3 gm/dL (11.4-16.0); Lymphocytes % (A) 23 %; MCHC 33.3 g/dL (31.0-37.0); MCV 90.1 fL (80.0-100.0); Monocytes # (A) 0.5 k/uL (0-1.0); Monocytes % (A) 5 %; Neutrophils # (A) 5.8 k/uL (1.3-7.7); Neutrophils % (A) 67 %; Platelet Count 287 k/uL (150-450); RBC 5.09 m/uL (3.80-5.40); RDW 12.6 % (11.5-15.5); WBC 8.7 k/uL (3.8-10.6)
[2024-11-08 04:25] LABS: ALT 33 U/L (4-34); AST 35 U/L (14-36); African American GFR (CKD) >90 (>60 ml/min/1.73 sqM); Albumin 3.9 g/dL (3.5-5.0); Alkaline Phosphatase 66 U/L (38-126); Anion Gap 4 mmol/L; Blood Urea Nitrogen 15 mg/dL (7-17); Calcium 9.4 mg/dL (8.4-10.2); Carbon Dioxide 28 mmol/L (22-30); Chloride 105 mmol/L (98-107); Glucose 117 mg/dL (74-99); Non-African American GFR(CKD) >90 (>60 ml/min/1.73 sqM); Potassium 3.8 mmol/L (3.5-5.1); Sodium 137 mmol/L (137-145); Total Bilirubin 0.4 mg/dL (0.2-1.3); Total Protein 6.5 g/dL (6.3-8.2)
[2024-11-08 04:30] LABS: INR 0.9 (<1.2); Prothrombin Time 10.1 sec (10.0-12.5)
--- NOTE | 2024-11-08 05:27 | XR ---
EXAM: XR Chest, 2 Views CLINICAL HISTORY: complaining of left arm, left chest "heaviness," that awoke her out of her sleep around 0130. Pt denies any cardiac hx. TECHNIQUE: Frontal and lateral views of the chest. COMPARISON: 08/29/22 FINDINGS: Lungs: Unremarkable. No consolidation. Pleural space: Unremarkable. Mediastinum: Unremarkable. Normal mediastinal contour. Bones/joints: No acute findings. IMPRESSION: No acute findings.
[2024-11-08 05:35] VITALS: BP 105/87; PULSE 87
== END 2024-11-08 05:35 | disposition home or self-care (01) ==
LOC: EC 02:59
DX: R07.89 Other chest pain (principal); Z86.73 Personal history of transient ischemic attack (TIA), and cerebral infarction without residual deficits; F17.200 Nicotine dependence, unspecified, uncomplicated
CPT/HCPCS: 36415; 71046; 80053; 83735; 84484; 85025; 85379; 85610; 85730; 93005; 99285

== ENCOUNTER 2024-12-10 09:51 | Day surgery (SDC) | payer BC ==
--- NOTE | 2024-12-10 08:59 | P.GSHP ---
History of Present Illness H&P Date: 12/10/24 CHIEF COMPLAINT: GERD and colon screen HISTORY OF PRESENT ILLNESS: The patient is a 49-year-old female who presents with gastroesophageal reflux disease and need for colon screen. Upper and lower endoscopy were offered for further evaluation and management. PAST MEDICAL HISTORY: Please see list. PAST SURGICAL HISTORY: Please see list. MEDICATIONS: Please see list. ALLERGIES: Please see list. SOCIAL HISTORY: No illicit drug use FAMILY HISTORY: No reports of Crohn disease or ulcerative colitis. REVIEW OF ORGAN SYSTEMS: CONSTITUTIONAL: No reports of fevers or chills. GI: Denies any blood in stools or constipation. PHYSICAL EXAM: VITAL SIGNS: Stable GENERAL: Well-developed pleasant in no acute distress. HEENT: No scleral icterus. Extraocular movements grossly intact. Moist buccal mucosa. NECK: Supple without lymphadenopathy. CHEST: Unlabored respirations. Equal bilateral excursions. CARDIOVASCULAR: Regular rate and rhythm. Distal 2+ pulses. ABDOMEN: Soft, nondistended. MUSCULOSKELETAL: No clubbing, cyanosis, or edema. ASSESSMENT: 1. Gastroesophageal reflux disease 2. Colon screen. PLAN: 1. Recommend proceeding with an upper and lower endoscopy Past Medical History Past Medical History: CVA/TIA, GERD/Reflux Additional Past Medical History / Comment(s): 2020 tia, fatty tumor on liver History of Any Multi-Drug Resistant Organisms: None Reported Past Surgical History: Cholecystectomy, Tubal Ligation Past Anesthesia/Blood Transfusion Reactions: No Reported Reaction Smoking Status: Current every day smoker - Past Family History Brother(s) Family Medical History: Cancer Additional Family Medical History / Comment(s): lung,stomach, brain spine Medications and Allergies Home Medications Medication Instructions Recorded Confirmed Type Escitalopram [Lexapro] 10 mg PO DAILY 08/29/22 12/09/24 History Pantoprazole [Protonix] 40 mg PO AC-BID #60 tab 08/30/22 12/09/24 Rx Allergies Allergy/AdvReac Type Severity Reaction Status Date / Time No Known Allergies Allergy Verified 12/09/24 10:06
[~2024-12-10 09:51] MED LIST: LIDOCAINE 1% (10MG/ML) FOR IV START INTRADERMA PRN
[2024-12-10] MEDS: IV FLUID CONTINUATION 1,000 ML IV ONE (10:16)
[2024-12-10 10:27] VITALS: TEMP 98
[2024-12-10] MEDS: LACTATED RINGERS 1,000 ML IV SCH (10:38)
[2024-12-10] MEDS ORDERED: LIDOCAINE 1% INJ 10MG/ML (20 ML MDV) ONE (11:28)
[2024-12-10] MEDS ORDERED: PROPOFOL 10 MG/ML 20 ML VIAL IV ONE (11:28)
[2024-12-10 12:41] VITALS: BP 100/67; PULSE 76; RESP 18
--- NOTE | 2024-12-10 12:45 | P.PCN ---
Date of Procedure: 12/10/24 Description of Procedure: Twelve-lead EKG obtained for atypical chest pain
--- NOTE | 2024-12-10 12:46 | P.PCN ---
Date of Procedure: 12/10/24 Description of Procedure: PREOPERATIVE DIAGNOSIS: Family history of colon cancer Colonoscopy screening. POSTOPERATIVE DIAGNOSIS: Colonoscopy screening. OPERATION: Colonoscopy to the cecum, ileocecal valve and appendiceal orifice. SURGEON: Marquita Nj MD. ANESTHESIA: MAC. INDICATIONS: The patient is a 49-year-old female who presents for colonoscopy screening. She has family history of colon cancer in each generation including grandparents, father. Benefits and risks were described and informed consent was obtained. DESCRIPTION OF PROCEDURE: The patient had undergone Suprep. The patient had been brought into the operating room and laid in the left lateral decubitus position. After adequate intravenous sedation, the rectum was examined with 2% lidocaine jelly. No external hemorrhoids were encountered. The rectal tone was within normal limits. No lesions were palpated in the rectal vault. An Olympus colonoscope was advanced until the cecum, ileocecal valve and appendiceal orifice were clearly viewed. The prep was excellent. Scattered diverticulosis was encountered. No colonic polyps were found. No evidence of focal colitis was found. Retroflexion of the scope demonstrated grade 1 internal hemorrhoids without active bleeding or inflammation. The colon was desufflated. The patient had tolerated the procedure well. Withdrawal time was over 6 minutes. FINDINGS: Aronchick preparation quality scale 2+ (1-5) Internal hemorrhoids, grade 1 No external prolapsed hemorrhoids. No arteriovenous malformations. No adenomatous polyps. No focal colitis. RECOMMENDATIONS: Lower endoscopy in 5 years2029 Plan - Discharge Summary Discharge Rx Participant: No New Discharge Prescriptions: No Action Escitalopram [Lexapro] 10 mg PO DAILY Pantoprazole [Protonix] 40 mg PO AC-BID #60 tab Discharge Medication List Escitalopram [Lexapro] 10 mg PO DAILY 08/29/22 [History] Pantoprazole [Protonix] 40 mg PO AC-BID #60 tab 08/30/22 [Rx] Patient Instructions/Handouts: *Surgery [facility] - (Anesthesia) Discharge Instructions Outpatient Surgery, Colonoscopy (DC), Upper Endoscopy (DC)
--- NOTE | 2024-12-10 12:50 | P.PCN ---
Date of Procedure: 12/10/24 Description of Procedure: PREOPERATIVE DIAGNOSIS: Dysphagia Gastroesophageal reflux disease. Atypical chest pain POSTOPERATIVE DIAGNOSIS: Gastroesophageal reflux disease. Gastritis. Acute gastric ulcer Diaphragmatic hiatal hernia OPERATION: Esophagogastroduodenoscopy with cold forceps biopsies along esophagus, antrum and duodenum SURGEON: Marquita Nj MD ANESTHESIA: MAC. INDICATIONS: The patient is a 49-year-old female who presents with dysphagia, atypical chest pain reflux disease. Benefits and risks of the procedure were described. Informed consent was obtained. DESCRIPTION: The patient was brought into the endoscopy suite and laid in the left lateral decubitus position. An Olympus gastroscope was passed along the posterior oropharynx down to the distal esophagus where the squamocolumnar junction was encountered at 37 cm from the incisors. The stomach was entered and no bile refl ux was found. Additional findings are listed below. Biopsies with cold forceps were obtained of the antrum. The first through third portion of the duodenum was examined. Retroflexion of the scope confirmed Hill grade 3 lower esophageal valve. The squamocolumnar junction demonstrated LA grade B erosive esophagitis. The stomach was desufflated. The patient tolerated the procedure well. FINDINGS: Squamocolumnar junction 37 cm from the incisors. Diaphragmatic hiatus at 39 cm. Hiatal hernia, 2 cm Hill grade 2 lower esophageal valve. LA grade B erosive esophagitis. Biopsies obtained. Biopsies obtained of the duodenum. Chronic gastritis with biopsies obtained. Acute gastric ulcer, antrum RECOMMENDATIONS: Carafate 1 g twice daily for 2 weeks. Continue Protonix
== END 2024-12-10 13:14 | disposition home or self-care (01) ==
LOC: ORWHC2ENDO 09:51
PROVIDERS: ATTEND Surgery Plastic and Reconstructive Surgery
DX: Z12.11 Encounter for screening for malignant neoplasm of colon (principal); K29.50 Unspecified chronic gastritis without bleeding; K25.3 Acute gastric ulcer without hemorrhage or perforation; K44.9 Diaphragmatic hernia without obstruction or gangrene; K21.00 Gastro-esophageal reflux disease with esophagitis, without bleeding; K64.0 First degree hemorrhoids; K76.0 Fatty (change of) liver, not elsewhere classified; F41.9 Anxiety disorder, unspecified; F17.210 Nicotine dependence, cigarettes, uncomplicated; Z86.73 Personal history of transient ischemic attack (TIA), and cerebral infarction without residual deficits; Z80.0 Family history of malignant neoplasm of digestive organs; Z90.49 Acquired absence of other specified parts of digestive tract; Z98.51 Tubal ligation status; Z79.899 Other long term (current) drug therapy
CPT/HCPCS: 88305; 45378; 43239; J2003; J2704

== ENCOUNTER → 2024-12-17 | Outpatient (CLI) | payer BC ==
--- NOTE | 2024-12-17 08:46 | US ---
EXAMINATION TYPE: US abdomen limited DATE OF EXAM: 12/17/2024 COMPARISON: NONE CLINICAL INDICATION: Female, 49 years old with history of K43.9 Ventral Hernia w/o obstruc or gangren e; patient states in 2019 a hernia was seen and fixed during cholecystectomy, she has some bulging cornelius perior right of umbilicus and inferior left. She does NOT feel them today TECHNIQUE: Grayscale with or without color Doppler imaging of the area of hernia concern. Real-time scanning was performed by the radiophone operator utilizing Valsalva and additional dynamic maneuve rs to assess for hernia. Images of the contralateral side were also acquired for direct comparison. FINDINGS: Assess for hernia at location of: Soft tissue surrounding umbilicus was scan with no obvious abnorml aity noted, with and without valslva. Patient did state she can't feel these areas today. IMPRESSION: No discrete abnormality appreciated [facility], , 12/17/2024 8:44 AM
== END | disposition home or self-care (01) ==
LOC: RADUSWWP 07:58
PROVIDERS: ATTEND Surgery Plastic and Reconstructive Surgery
DX: K43.9 Ventral hernia without obstruction or gangrene (principal)
CPT/HCPCS: 76705

== ENCOUNTER 2025-02-07 16:17 | Observation (INO) | payer BC ==
--- NOTE | 2025-02-07 16:49 | ED ---
General Adult HPI - General Chief complaint: Syncope Stated complaint: Possible Dehydration/Passed out w abd pain Time Seen by Provider: 02/07/25 16:46 Source: patient, RN notes reviewed Mode of arrival: wheelchair Limitations: no limitations - History of Present Illness Initial comments: 49-year-old female with history of hiatal hernia presenting for abdominal pain prior to arrival. reports they were working around the house when patient started to suddenly complain of a burning epigastric pain that radiates to her back. Patient went inside and checked on her 10 minutes later and she was complaining of severe pain and seem to be fatigued at that time. They got in the car to come to the emergency room and patient had a syncopal episode in the car. Patient admits to 3 beers today. No significant health conditions besides she is undergoing medical clearance for hiatal hernia surgery. - Related Data Home Medications Medication Instructions Recorded Confirmed Escitalopram [Lexapro] 10 mg PO DAILY 08/29/22 12/10/24 Previous Rx's Medication Instructions Recorded Pantoprazole [Protonix] 40 mg PO AC-BID #60 tab 08/30/22 Sucralfate [Carafate] 1 gm PO BID #30 tablet 12/10/24 Allergies Allergy/AdvReac Type Severity Reaction Status Date / Time No Known Allergies Allergy Verified 02/07/25 16:24 Review of Systems ROS Statement: Those systems with pertinent positive or pertinent negative responses have been documented in the HPI. ROS Other: All systems not noted in ROS Statement are negative. Past Medical History Past Medical History: CVA/TIA, GERD/Reflux Additional Past Medical History / Comment(s): 2020 tia, fatty tumor on liver History of Any Multi-Drug Resistant Organisms: None Reported Past Surgical History: Cholecystectomy, Tubal Ligation Past Anesthesia/Blood Transfusion Reactions: No Reported Reaction Past Psychological History: Anxiety Smoking Status: Current every day smoker Past Alcohol Use History: Occasional Past Drug Use History: None Reported - Past Family History Brother(s) Family Medical History: Cancer Additional Family Medical History / Comment(s): lung,stomach, brain spine General Exam Limitations: no limitations General appearance: alert, in no apparent distress, appears intoxicated Head exam: Present: atraumatic, normocephalic, normal inspection Eye exam: Present: normal appearance, PERRL, EOMI. Absent: scleral icterus, conjunctival injection, periorbital swelling ENT exam: Present: normal exam, mucous membranes moist Neck exam: Present: normal inspection. Absent: tenderness, meningismus, lymphadenopathy Respiratory exam: Present: normal lung sounds bilaterally. Absent: respiratory distress, wheezes, rales, rhonchi, stridor Cardiovascular Exam: Present: regular rate, normal rhythm, normal heart sounds. Absent: systolic murmur, diastolic murmur, rubs, gallop, clicks GI/Abdominal exam: Present: soft, normal bowel sounds. Absent: distended, tenderness, guarding, rebound, rigid Neurological exam: Present: alert, oriented X3 Psychiatric exam: Present: normal affect, normal mood Skin exam: Present: warm, dry, intact, normal color. Absent: rash Course Vital Signs 02/07/25 16:21 Temperature 97.9 F Pulse Rate 69 Respiratory 18 Rate Blood Pressure 106/71 O2 Sat by Pulse 99 Oximetry EKG Findings - EKG Results: EKG: interpreted by ERMD (EKG reveals sinus bradycardia with no acute ST changes. Ventricular rate 57 bpm, parable 139, QRS duration 108, QT/QTc 455/449) Medical Decision Making - Medical Decision Making Was pt. sent in by a medical professional or institution (, PA, LAPPING MACHINE SET UP OPERATOR, urgent care, hospital, or assisted...) When possible be specific @ -No Did you speak to anyone other than the patient for history (EMS, parent, family, police, friend...)? What history was obtained from this source @ provided most of history Did you review nursing and triage notes (agree or disagree)? Why? @ -I reviewed and agree with nursing and triage notes Were old charts reviewed (outside hosp., previous admission, EMS record, old EKG, old radiological studies, urgent care reports/EKG's, assisted records)? Report findings @ -No old charts were reviewed Differential Diagnosis (chest pain, altered mental status, abdominal pain women, abdominal pain men, vaginal bleeding, weakness, fever, dyspnea, syncope, headache, dizziness, GI bleed, back pain, seizure, CVA, palpatations, mental health, musculoskeletal)? @ -Differential Abdominal Pain Women: Appendicitis, Cholecystitis, diverticulosis, ischemic bowel, pancreatitis, hepatitis, UTI, gastroenteritis, AAA, incarcerated hernia, bowel obstruction, constipation, inflammatory bowel, hepatitis, peptic ulcer disease, splenic infarction, perforated viscus, vulvitis, ovarian torsion, PID, kidney stone, pl acenta abruption, this is not meant to be an all-inclusive list EKG interpreted by me (3pts min.). @ -As above X-rays interpreted by me (1pt min.). @ -None done CT interpreted by me (1pt min.). @ -CT aorta thoracic abdomen pelvis reveals no acute process U/S interpreted by me (1pt. min.). @ -None done What testing was considered but not performed or refused? (CT, X-rays, U/S, labs)? Why? @ -None What meds were considered but not given or refused? Why? @ -None Did you discuss the management of the patient with other professionals (professionals i.e. , PA, LAPPING MACHINE SET UP OPERATOR, lab, RT, psych nurse, hospital social worker, executive director sheltered workshop, teacher, environmental compliance officer, registered nurse hh case manager)? Give summary @ -I spoke with Dr. Page who accepts admission and request CT brain with consultation to neurology and cardiology Was smoking cessation discussed for >3mins.? @ -No Was critical care preformed (if so, how long)? @ -No Were there social determinants of health that impacted care today? How? (Homelessness, low income, unemployed, alcoholism, drug addiction, transportation, low edu. Level, literacy, decrease access to med. care, fpc, rehab)? @ -No Was there de-escalation of care discussed even if they declined (Discuss DNR or withdrawal of care, Hospice)? DNR status @ -No What co-morbidities impacted this encounter? (DM, HTN, Smoking, COPD, CAD, Cancer, CVA, ARF, Chemo, Hep., AIDS, mental health diagnosis, sleep apnea, morbid obesity)? @ -None Was patient admitted / discharged? Hospital course, mention meds given and route, prescriptions, significant lab abnormalities, going to OR and other pertinent info. @ - admitted. 49-year-old female presenting for burning epigastric pain with episode of syncope. Vital signs are within acceptable limits. Provided with IV fluids, Zofran, and Tylenol. Lab work largely unremarkable. Troponin negative. EKG reveals no acute ST changes. CT aorta chest abdomen pelvis reveals no acute process. Upon reevaluation, patient reports improvement of symptoms. Patient will be admitted to medicine for syncope and epigastric pain with consultation to cardiology and neurology. Case was discussed with my ED attending Dr. Mathews. Undiagnosed new problem with uncertain prognosis? @ -No Drug Therapy requiring intensive monitoring for toxicity (Heparin, Nitro, Insulin, Cardizem)? @ -No Were any procedures done? @ -No Diagnosis/symptom? @ -Epigastric pain, syncope Acute, or Chronic, or Acute on Chronic? @ -Acute Uncomplicated (without systemic symptoms) or Complicated (systemic symptoms)? @ -Complicated Side effects of treatment? @ -No Exacerbation, Progression, or Severe Exacerbation? @ -No Poses a threat to life or bodily function? How? (Chest pain, USA, NV, pneumonia, PE, COPD, DKA, ARF, appy, cholecystitis, CVA, Diverticulitis, Homicidal, Suicidal, threat to staff... and all critical care pts) @ -Possibly - Lab Data Result diagrams: 02/07/25 17:24 02/07/25 17:24 Lab Results 02/07/25 02/07/25 02/07/25 Range/Units 17:24 17:24 17:24 WBC 6.63 (4.50-10.00) 10*3/uL RBC 4.58 (4.10-5.20) 10*6/uL Hgb 13.9 (12.0-15.0) g/dL Hct 40.8 (37.2-46.3) % MCV 89.1 (80.0-97.0) fL MCH 30.3 (27.0-32.0) pg MCHC 34.1 (32.0-37.0) g/dL Plt Count 260 (140-440) 10*3/uL MPV 9.1 L (9.5-12.2) fL Immature Gran % (Auto) 0.3 % Neutrophils % 54.3 % Lymphocytes % 26.1 % Monocytes % 6.8 % Eosinophils % 11.6 % Basophils % 0.9 % Immature Gran # 0.02 (0.00-0.04) 10*3/uL Neutrophils # 3.60 (1.80-7.70) 10*3/uL Lymphocytes # 1.73 (0.90-5.00) 10*3/uL Monocytes # 0.45 (0.20-1.00) 10*3/uL Eosinophils # 0.77 H (0.04-0.35) 10*3/uL Basophils # 0.06 (0.00-0.10) 10*3/uL PT 11.6 (10.0-12.5) sec INR 1.1 (<1.2) APTT 23.9 (22.0-30.0) sec Sodium 138 (137-145) mmol/L Potassium 3.3 L (3.5-5.1) mmol/L Chloride 102 (98-107) mmol/L Carbon Dioxide 25 (22-30) mmol/L Anion Gap 11 mmol/L BUN 8 (7-17) mg/dL Creatinine 0.75 (0.52-1.04) mg/dL Est GFR (CKD-EPI)AfAm >90 (>60 ml/min/1.73 sqM) Est GFR (CKD-EPI)NonAf >90 (>60 ml/min/1.73 sqM) Glucose 83 (74-99) mg/dL Plasma Lactic Acid Scar (0.7-2.0) mmol/L Calcium 9.4 (8.4-10.2) mg/dL Magnesium 2.0 (1.6-2.3) mg/dL Total Bilirubin 0.3 (0.2-1.3) mg/dL AST 47 H (14-36) U/L ALT 34 (4-34) U/L Alkaline Phosphatase 81 (38-126) U/L Troponin I (0.000-0.034) ng/mL Total Protein 6.1 L (6.3-8.2) g/dL Albumin 3.8 (3.5-5.0) g/dL Lipase 65 (23-300) U/L HCG, Qual Not Detected Serum Alcohol 35 mg/dL 02/07/25 02/07/25 Range/Units 17:24 17:24 WBC (4.50-10.00) 10*3/uL RBC (4.10-5.20) 10*6/uL Hgb (12.0-15.0) g/dL Hct (37.2-46.3) % MCV (80.0-97.0) fL MCH (27.0-32.0) pg MCHC (32.0-37.0) g/dL Plt Count (140-440) 10*3/uL MPV (9.5-12.2) fL Immature Gran % (Auto) % Neutrophils % % Lymphocytes % % Monocytes % % Eosinophils % % Basophils % % Immature Gran # (0.00-0.04) 10*3/uL Neutrophils # (1.80-7.70) 10*3/uL Lymphocytes # (0.90-5.00) 10*3/uL Monocytes # (0.20-1.00) 10*3/uL Eosinophils # (0.04-0.35) 10*3/uL Basophils # (0.00-0.10) 10*3/uL PT (10.0-12.5) sec INR (<1.2) APTT (22.0-30.0) sec Sodium (137-145) mmol/L Potassium (3.5-5.1) mmol/L Chloride (98-107) mmol/L Carbon Dioxide (22-30) mmol/L Anion Gap mmol/L BUN (7-17) mg/dL Creatinine (0.52-1.04) mg/dL Est GFR (CKD-EPI)AfAm (>60 ml/min/1.73 sqM) Est GFR (CKD-EPI)NonAf (>60 ml/min/1.73 sqM) Glucose (74-99) mg/dL Plasma Lactic Acid Scar 1.7 (0.7-2.0) mmol/L Calcium (8.4-10.2) mg/dL Magnesium (1.6-2.3) mg/dL Total Bilirubin (0.2-1.3) mg/dL AST (14-36) U/L ALT (4-34) U/L Alkaline Phosphatase (38-126) U/L Troponin I <0.012 (0.000-0.034) ng/mL Total Protein (6.3-8.2) g/dL Albumin (3.5-5.0) g/dL Lipase (23-300) U/L HCG, Qual Serum Alcohol mg/dL Disposition Clinical Impression: Syncope, Epigastric pain Disposition: ADMITTED IP TO THIS HOSP Referrals: Cherry Batres DO [Primary Care Provider] - 1-2 days Time of Disposition: 20:20
[2025-02-07] MEDS: SODIUM CHLORIDE 0.9% 1,000 ML IV STA (17:25)
[2025-02-07] MEDS: ACETAMINOPHEN TAB 500 MG TAB PO STA (17:25)
[2025-02-07] MEDS: ONDANSETRON 4 MG/2 ML VIAL IVP STA (17:25)
[2025-02-07 17:51] LABS: Basophils # (A) 0.06 10*3/uL (0.00-0.10); Basophils % (A) 0.9 %; Eosinophils # (A) 0.77 10*3/uL (0.04-0.35); Eosinophils % (A) 11.6 %; HCT 40.8 % (37.2-46.3); HGB 13.9 g/dL (12.0-15.0); Lymphocytes # (A) 1.73 10*3/uL (0.90-5.00); Lymphocytes % (A) 26.1 %; MCH 30.3 pg (27.0-32.0); MCHC 34.1 g/dL (32.0-37.0); MCV 89.1 fL (80.0-97.0); Mean Platelet Volume 9.1 fL (9.5-12.2); Monocytes # (A) 0.45 10*3/uL (0.20-1.00); Monocytes % (A) 6.8 %; Neutrophils % (A) 54.3 %; Platelet Count 260 10*3/uL (140-440); RBC 4.58 10*6/uL (4.10-5.20); RDW 12.2 % (11.5-14.5); WBC 6.63 10*3/uL (4.50-10.00)
[2025-02-07 18:02] LABS: INR 1.1 (<1.2); Partial Thromboplastin Time 23.9 sec (22.0-30.0); Prothrombin Time 11.6 sec (10.0-12.5)
[2025-02-07 18:06] LABS: HCG,Qualitative Serum Not Detected
[2025-02-07 18:08] LABS: ALT 34 U/L (4-34); AST 47 U/L (14-36); African American GFR (CKD) >90 (>60 ml/min/1.73 sqM); Albumin 3.8 g/dL (3.5-5.0); Alcohol 35 mg/dL; Alkaline Phosphatase 81 U/L (38-126); Anion Gap 11 mmol/L; Blood Urea Nitrogen 8 mg/dL (7-17); Calcium 9.4 mg/dL (8.4-10.2); Carbon Dioxide 25 mmol/L (22-30); Chloride 102 mmol/L (98-107); Glucose 83 mg/dL (74-99); Lipase 65 U/L (23-300); Non-African American GFR(CKD) >90 (>60 ml/min/1.73 sqM); Potassium 3.3 mmol/L (3.5-5.1); Sodium 138 mmol/L (137-145); Total Bilirubin 0.3 mg/dL (0.2-1.3); Total Protein 6.1 g/dL (6.3-8.2)
--- NOTE | 2025-02-07 19:37 | CT ---
EXAMINATION TYPE: CT noncontrast chest abdomen pelvis. CT angio thor/abd pel aorta DATE OF EXAM: 02/07/2025 7:18 PM COMPARISON: None. CLINICAL INDICATION: Female, 49 years old with history of burning epigastric pain with syncope; [facility], Burning epigastric pain with syncope TECHNIQUE: Noncontrast CT chest followed by CT angiogram chest abdomen pelvis. A noncontrast CT chest Multiple a xial CT images of the chest, abdomen, and pelvis were obtained prior to and after the administration of IV contrast. 3-D reformats and maximum intensity projection format were performed on a separate wo rkstation. . Contrast used:100ml mL of Isovue 370 with IV Contrast, CT DLP: 1482.8 mGycm, Automated exposure control for dose reduction was used. FINDINGS: ARTERIAL VASCULATURE: Ascending thoracic aorta and descending thoracic aorta are within normal limits for size. There is no evidence for intramural hematoma within the aorta on noncontrast imaging. Post contrast imaging demonstrates no evidence for dissection. The major vessels of the aortic arch are pa tent. The major vessels of the abdominal aorta are patent. Incidental note of separate origin of the splenic artery off the abdominal aorta. PULMONARY ARTERIAL VASCULATURE: Normal caliber. No evidence of filling defect to suggest pulmonary em bolus. VENOUS SYSTEM: Unremarkable. LUNGS/ PLEURA: No focal consolidation, pneumothorax or pleural effusion. AIRWAY: Patent and unremarkable. HEART: Size within normal limits. MEDIASTINUM: No gross evidence of adenopathy. MUSCULOSKELETAL: No acute osseous abnormalities SOFT TISSUES/LYMPH NODES: Unremarkable. LOWER NECK: No significant findings. Abdomen: LIVER: Unremarkable GALLBLADDER AND BILE DUCTS: The gallbladder is surgically absent. PANCREAS: Unremarkable. SPLEEN: Unremarkable. ADRENAL GLANDS: Unremarkable. KIDNEYS AND URETERS: No evidence of hydronephrosis or renal calculus. The ureters are unremarkable. PELVIS BLADDER: Unremarkable REPRODUCTIVE: Unremarkable. ABDOMEN & PELVIS STOMACH AND BOWEL: Stomach and duodenum are unremarkable No evidence of bowel obstruction. Small hiat al hernia. PERITONEUM/RETROPERITONEUM: No evidence of pneumoperitoneum or free fluid. MUSCULOSKELETAL: No acute osseous abnormalities LYMPH NODES: No gross evidence for lymphadenopathy. SOFT TISSUE/ABDOMINAL WALL: Unremarkable IMPRESSION: No acute abnormality in the chest/abdomen/pelvis. [facility], , 02/07/2025 7:34 PM
[2025-02-07] MEDS ORDERED: NALOXONE 0.4 MG/ML 1 ML VIAL IV PRN (20:20)
[2025-02-07] MEDS ORDERED: ONDANSETRON 4 MG/2 ML VIAL IVP PRN (20:20)
[2025-02-07] MEDS ORDERED: ACETAMINOPHEN TAB 325 MG TAB PO PRN (20:20)
[2025-02-07] MEDS ORDERED: MORPHINE SULFATE 4 MG/ML SYRINGE IV PRN (20:20)
[2025-02-07] MEDS: SODIUM CHLORIDE 0.9% 1,000 ML IV SCH (20:33)
[2025-02-07] MEDS: KETOROLAC 15 MG/ML 1 ML VIAL IVP PRN (23:01)
--- NOTE | 2025-02-08 00:59 | CT ---
EXAM: CT Head Without Intravenous Contrast CLINICAL HISTORY: CT Reason: syncope TECHNIQUE: Axial computed tomography images of the head/brain without intravenous contrast. CTDI is 49.1 mGy and DLP is 1141.4 mGy-cm. This CT exam was performed using one or more of the following dose reduction techniques: automated exposure control, adjustment of the mA and/or kV according to patient size, and/or use of iterative reconstruction technique. COMPARISON: 08/02/2023 FINDINGS: Brain: Unremarkable. No hemorrhage. No significant white matter disease. No edema. Ventricles: Unremarkable. No ventriculomegaly. Bones/joints: Unremarkable. No acute fracture. Soft tissues: Unremarkable. Sinuses: Unremarkable as visualized. No acute sinusitis. Mastoid air cells: Unremarkable as visualized. No mastoid effusion. IMPRESSION: Normal head/brain CT.
[2025-02-08] MEDS: PANTOPRAZOLE 40 MG TABLET PO SCH (06:37)
[2025-02-08 08:32] LABS: Basophils # (A) 0.06 10*3/uL (0.00-0.10); Eosinophils # (A) 0.81 10*3/uL (0.04-0.35); Eosinophils % (A) 13.2 %; HCT 40.6 % (37.2-46.3); HGB 13.5 g/dL (12.0-15.0); Lymphocytes # (A) 1.89 10*3/uL (0.90-5.00); Lymphocytes % (A) 30.7 %; MCH 30.5 pg (27.0-32.0); MCHC 33.3 g/dL (32.0-37.0); MCV 91.6 fL (80.0-97.0); Mean Platelet Volume 9.7 fL (9.5-12.2); Monocytes # (A) 0.41 10*3/uL (0.20-1.00); Monocytes % (A) 6.7 %; Neutrophils # (A) 2.97 10*3/uL (1.80-7.70); Neutrophils % (A) 48.2 %; Platelet Count 270 10*3/uL (140-440); RBC 4.43 10*6/uL (4.10-5.20); RDW 12.4 % (11.5-14.5); WBC 6.15 10*3/uL (4.50-10.00)
[2025-02-08] MEDS: ESCITALOPRAM 10 MG TAB PO SCH (08:55)
[2025-02-08] MEDS: SUCRALFATE 1 GM TAB PO SCH (08:56)
[2025-02-08 09:02] LABS: African American GFR (CKD) >90 (>60 ml/min/1.73 sqM); Anion Gap 7 mmol/L; Blood Urea Nitrogen 10 mg/dL (7-17); Calcium 8.9 mg/dL (8.4-10.2); Carbon Dioxide 23 mmol/L (22-30); Chloride 111 mmol/L (98-107); Glucose 95 mg/dL (74-99); Non-African American GFR(CKD) >90 (>60 ml/min/1.73 sqM); Potassium 4.3 mmol/L (3.5-5.1); Sodium 141 mmol/L (137-145)
--- NOTE | 2025-02-08 09:29 | US ---
EXAMINATION TYPE: US carotid duplex BILAT DATE OF EXAM: 02/08/2025 COMPARISON: NONE CLINICAL INDICATION: Female, 49 years old with history of syncope; Additional History: .... TECHNIQUE: Grayscale, color Doppler and spectral Doppler evaluation of the bilateral carotid systems and vertebral arteries. Indirect Doppler criteria was utilized. FINDINGS: EXAM MEASUREMENTS: RIGHT: Peak Systolic Velocity (PSV) cm/sec ----- Right CCA: 96.4 ----- Right ICA: 96.1 ----- Right ECA: 115 ICA/CCA ratio: 1 RIGHT: End Diastole cm/sec ----- Right CCA: 25.3 ----- Right ICA: 21.6 ----- Right ECA: 19.5 LEFT: Peak Systolic Velocity (PSV) cm/sec ----- Left CCA: 92.5 ----- Left ICA: 94.1 ----- Left ECA: 106 ICA/CCA ratio: 1.0 LEFT: End Diastole cm/sec ----- Left CCA: 23.6 ----- Left ICA: 28.1 ----- Left ECA: 13.2 VERTEBRALS (direction of flow): Right Vertebral: Antegrade Left Vertebral: Antegrade Rhythm: Normal HEALTH INFORMATICS SPECIALIST NOTES: no elevated velocities, plaque or significant stenosis seen bilaterally Color Doppler imaging shows patency with blood flow throughout the carotid artery. Spectral waveforms are within normal limits. IMPRESSION: 1. No calcified plaque or stenosis based on color and grayscale imaging. 2. No hemodynamically significant stenosis bilaterally based on color and grayscale imaging as well as peak systolic velocities and ratios. Criteria for Assigning % of Stenosis / Diameter reduction (Estimation based on the indirect measurements of the internal carotid artery velocities (ICA PSV). 1. Normal (no stenosis)=ICA PSV < 180 cm/s: ratio < 2.0: ICA EDV<40 cm/s. 2. Less than 50% stenosis=ICA PSV < 180 cm/s: ratio < 2.0: ICA EDV<40 cm/s. 3. 50 to 69% stenosis=ICA PSV of 180 to 230 cm/s: ration 2.0 ? 4.0: ICA EDV 40-100 cm/s. PSV 125-180 cm/sec and ICA/CCA PSV Ratio ? 2.0 is also consistent with 50-69% stenosis 4. Greater than 70% stenosis to near occlusion= ICA PSV > 230 cm/s: ratio > 4.0: ICA EDV > 100 cm/s. 5. Near occlusion= ICA PSV velocities may be low or undetectable: variable ratio and ICA EDV. 6. Total occlusion=unable to detect flow. [facility], Workstation: [email or web address] 02/08/2025 9:27 AM
--- NOTE | 2025-02-08 12:06 | P.CNNES ---
History of Present Illness Consult date: 02/08/25 Requesting physician: Steffany Witt Reason for Consult: syncope History of Present Illness: This is a 49 year-old woman who presents to the emergency department because of passing out. The who is at bedside who provides some of the history. It seems the patient and her were in the Garage yesterday and were drinking alcohol and around 3pm, patient felt pain in the center of abdominal and slightly to right that radiated to back and feel swelling sensation in that region and felt uncomfortable. She drank about 4 cans of beer and yesterday was hot outside and was not hydrating self. Because of her pain she went inside and within 10 minutes, her went to check up on her and found her on the ground leaning on table, unresponsive, eye rolling back then when he tried waking her up she was talking incohrently. No jerking of extremities, foaming around the mouth, urinary or bowel incontinence or tongue bite. Her condition was improved within 1.5 hours. No history of seizures. She has benign liver mass for past 20 years and has surveillance follow-up. She smokes 0.5 PPD. She currently feels back to baseline. There is questionable TIA in 2020 for her difficulty talking but her throat was tight and she was at [place] and was told TIA but she does not recall getting any imaging. Some of the work-up during this hospital visit consisted of: Plasma Lactic acid vein: 1.7 Sodium, serum glucose, calcium, magnesium and sodium are within normal limits. I reviewed the lab work-up. Alcohol level 35 (normal is <10 CT head: Normal. I personally reviewed CT and agree with report. Carotid duplex: No calcified plaque or stenosis based on color and grayscale imaging. No hemodynamically significant stenosis bilaterally based on color and grayscale imaging as well as peak systolic velocities and ratio. CTA thoracic and abd/pelvis: No acute abnormality in chest/abdomen/pelvis. Review of Systems As per HPI. Past Medical History Past Medical History: CVA/TIA, GERD/Reflux Additional Past Medical History / Comment(s): 2020 tia, fatty tumor on liver History of Any Multi-Drug Resistant Organisms: None Reported Past Surgical History: Cholecystectomy, Tubal Ligation Past Anesthesia/Blood Transfusion Reactions: No Reported Reaction Past Psychological History: Anxiety Smoking Status: Current every day smoker Past Alcohol Use History: Occasional Past Drug Use History: None Reported - Past Family History Brother(s) Family Medical History: Cancer Additional Family Medical History / Comment(s): lung,stomach, brain spine Medications and Allergies Home Medications Medication Instructions Recorded Confirmed Type Escitalopram [Lexapro] 10 mg PO DAILY 08/29/22 12/10/24 History Pantoprazole [Protonix] 40 mg PO AC-BID #60 tab 08/30/22 12/10/24 Rx Sucralfate [Carafate] 1 gm PO BID #30 tablet 12/10/24 Rx Allergies Allergy/AdvReac Type Severity Reaction Status Date / Time No Known Allergies Allergy Verified 02/07/25 16:24 Physical Examination - Vital Signs Vital Signs: Vital Signs Temp Pulse Pulse Resp BP BP Pulse Ox 02/08/25 07:00 98.1 F 67 14 91/58 95 02/08/25 02:00 97.7 F 72 16 92/61 98 02/08/25 01:28 72 16 94/62 95 02/08/25 00:22 67 16 101/84 95 02/07/25 22:12 80 16 97/73 99 02/07/25 20:36 66 18 116/80 97 02/07/25 16:21 97.9 F 69 18 106/71 99 Intake and Output 02/07/25 02/08/25 02/08/25 22:59 06:59 14:59 Other: # Voids 2 1 Weight 72.575 kg 72.575 kg GENERAL: The patient is lying in bed and is not in acute distress. NEUROLOGICAL: Higher mental function: The patient is awake, alert, oriented to self, place and time. Patient is following commands. No aphasia and no neglect. Cranial nerves: The pupils are round, equal and reactive to light and accommodation. Visual michelle are full to confrontation throughout. Extraocular movement is intact no nystagmus is noted. Facial sensation is normal to touch throughout. The facial strength is normal throughout. Hearing is normal bilaterally to hand rub. Tongue is midline and moved [id number] without any difficulty. No dysarthria is noted. Shoulder shrug is normal bilaterally. Motor: The strength is 5 over 5 throughout. Normal tone and bulk. Cerebellum: Normal finger to nose heel to macias bilaterally. Sensation: Sensation is normal to touch throughout. Reflexes (right/left): 2+ throughout. Plantars are downgoing bilaterally. Results - Laboratory Findings CBC and BMP: 02/08/25 07:30 02/08/25 07:30 Abnormal Lab Findings: Abnormal Labs 02/07/25 02/07/25 02/08/25 17:24 17:24 07:30 MPV 9.1 L Eosinophils # 0.77 H 0.81 H Potassium 3.3 L Chloride AST 47 H Total Protein 6.1 L 02/08/25 07:30 MPV Eosinophils # Potassium Chloride 111 H AST Total Protein Assessment and Plan Assessment: This is a 49 y/o female who presents to the ED because of syncopal spell. Yesterday the weather was hot and patient was not hydrating herself and drank about 4 cans of beer then developed abdominal pain then was found passed out by her . Syncopal spell: Possible due to dehydration and abdominal pain. Unlikely seizure. CT head is normal. Abdominal pain History of Hiatal hernia ?TIA in 2020 (dysarthria but at that time she had chocking sensation/pain in anterior neck and per patient at outside hospital in [place] she had no imaging/work-up)) Liver benign mass for past 20 years Nicotine use Alcohol use (level 35) Plan: Ordered orthostatic vitals. Will pursue with EEG but can be completed as outpatient if discharged. This does not seems seizure. Per the [place] DMV because of syncopal spell, avoid driving for 6 months until no further episodes, avoid heights, swimming unassisted or using heavy machinery. Recommend GI consultation Cardiology is consulted Patient was counseled on tobacco cessation Patient was counseled on decreasing alcohol consumption and to hydrate herself Will defer the rest of medical management to primary team and other specialist. The plan is discussed with the patient and her who is at bedside. Dr. Son will resume neurology service tomorrow A.M. Time with Patient: Greater than 30
[2025-02-08] MEDS ORDERED: THIAMINE 100 MG TAB PO SCH (12:45)
[2025-02-08 14:26] VITALS: RESP 16; TEMP 97.7
[2025-02-08 14:34] VITALS: BP 99/65; PULSE 73
--- NOTE | 2025-02-08 14:44 | P.CRDCN ---
History of Present Illness Consult date: 02/08/25 History of present illness: HISTORY OF PRESENTING ILLNESS: 49-year-old known to Dr. Mancera. She recently had a echo and a stress test done with Dr. Mancera in the office. It was a treadmill based stress test and patient reports that she was able to walk on treadmill without any chest pain lightheadedness dizziness. Yesterday patient was cleaning garage with her . She had 2-3 drinks of beer that afternoon. Patient reports that while working outside and after drinking beer she felt weak and had significant abdominal discomfort. She went inside her home to take some rest. When her checked on her he found her on the kitchen floor passed out. He lifted her and brought her to the ER in his car. The last thing patient remembers is having abdominal discomfort the next and she remembers was waking up in the ER. Evidently patient was out for at least 30 minutes. She denies any prior syncopal episodes. She denies any prior cardiovascular history. She has a hiatal hernia for which she recently had upper GI endoscopy and a colonoscopy done and she was recommended hiatal hernia surgery. She has been evaluated by neurology who would most likely perform a EEG tomorrow CT thoracic aorta, CT brain carotid Doppler were within normal limits Orthostatic vital signs were normal ECG shows sinus rhythm with nonspecific ST changes in lateral leads. Hemoglobin 13.9, sodium 138, potassium 3.3, BUN 10, creatinine send 0.7 Troponins were negative, serum alcohol was 35. REVIEW OF SYSTEMS: 14 point review of system is negative except what is mentioned above in HPI. PHYSICAL EXAMINATION: Neck: Brisk carotid upstroke, no jugular venous distention. Lungs: Clear to auscultation. Heart: Regular rate and rhythm, S1-S2, , no murmur or rub. Abdomen: Soft nontender, positive bowel sounds. Extremities: No edema, intact distal pulses. Neuro: Alert, oritented, no focal deficits. Detailed neuro exam was not performed. ASSESSMENT: # Syncope, unclear etiology # Alcohol use # Tobacco smoking PLAN: Recommend a 14-day extended heart monitor to be picked up from the office tomorrow Follow-up with Dr. Malhotra as scheduled. She has a echo scheduled in the office. She recently had a treadmill stress test. Obtain records from the office tomorrow No clear cardiogenic etiology identified that would explain patient's syncopal episode. Agree with getting neurological evaluation No driving recommended as per [place] law Drew Luna MD, FACC, RPVI Thank you for allowing [facility] to participate in this patient's care. Feel free to reach out in case of any followup questions. Past Medical History Past Medical History: CVA/TIA, GERD/Reflux Additional Past Medical History / Comment(s): 2020 tia, fatty tumor on liver History of Any Multi-Drug Resistant Organisms: None Reported Past Surgical History: Cholecystectomy, Tubal Ligation Past Anesthesia/Blood Transfusion Reactions: No Reported Reaction Past Psychological History: Anxiety Smoking Status: Current every day smoker Past Alcohol Use History: Occasional Past Drug Use History: None Reported - Past Family History Brother(s) Family Medical History: Cancer Additional Family Medical History / Comment(s): lung,stomach, brain spine Medications and Allergies Home Medications Medication Instructions Recorded Confirmed Type Escitalopram [Lexapro] 10 mg PO DAILY 08/29/22 02/08/25 History Pantoprazole [Protonix] 40 mg PO AC-BID #60 tab 08/30/22 02/08/25 Rx Fluticasone Nasal [place] [Flonase 2 spr EA NOSTRIL DAILY 02/08/25 02/08/25 History Nasal [place]] Allergies Allergy/AdvReac Type Severity Reaction Status Date / Time No Known Allergies Allergy Verified 02/08/25 12:55 Physical Exam Vitals: Vital Signs Temp Pulse Pulse Pulse Pulse Resp BP 02/08/25 14:32 88 89 73 02/08/25 14:25 97.7 F 68 16 02/08/25 07:00 98.1 F 67 14 02/08/25 02:00 97.7 F 72 16 02/08/25 01:28 72 16 94/62 02/08/25 00:22 67 16 101/84 02/07/25 22:12 80 16 97/73 02/07/25 20:36 66 18 116/80 02/07/25 16:21 97.9 F 69 18 106/71 BP BP BP BP Pulse Ox 02/08/25 14:32 121/85 123/85 99/65 02/08/25 14:25 108/71 96 02/08/25 07:00 91/58 95 02/08/25 02:00 92/61 98 02/08/25 01:28 95 02/08/25 00:22 95 02/07/25 22:12 99 02/07/25 20:36 97 02/07/25 16:21 99 Intake and Output 02/07/25 02/08/25 02/08/25 22:59 06:59 14:59 Other: # Voids 2 1 3 Weight 72.575 kg 72.575 kg Results 02/08/25 07:30 02/08/25 07:30 Cardiac Enzymes 02/07/25 02/07/25 02/07/25 Range/Units 17:24 17:24 20:47 AST 47 H (14-36) U/L Troponin I <0.012 <0.012 (0.000-0.034) ng/mL 02/07/25 Range/Units 23:01 AST (14-36) U/L Troponin I <0.012 (0.000-0.034) ng/mL Coagulation 02/07/25 Range/Units 17:24 PT 11.6 (10.0-12.5) sec APTT 23.9 (22.0-30.0) sec CBC 02/07/25 02/08/25 Range/Units 17:24 07:30 WBC 6.63 6.15 (4.50-10.00) 10*3/uL RBC 4.58 4.43 (4.10-5.20) 10*6/uL Hgb 13.9 13.5 (12.0-15.0) g/dL Hct 40.8 40.6 (37.2-46.3) % Plt Count 260 270 (140-440) 10*3/uL Comprehensive Metabolic Panel 02/07/25 02/08/25 Range/Units 17:24 07:30 Sodium 138 141 (137-145) mmol/L Potassium 3.3 L 4.3 (3.5-5.1) mmol/L Chloride 102 111 H (98-107) mmol/L Carbon Dioxide 25 23 (22-30) mmol/L BUN 8 10 (7-17) mg/dL Creatinine 0.75 0.71 (0.52-1.04) mg/dL Glucose 83 95 (74-99) mg/dL Calcium 9.4 8.9 (8.4-10.2) mg/dL AST 47 H (14-36) U/L ALT 34 (4-34) U/L Alkaline Phosphatase 81 (38-126) U/L Total Protein 6.1 L (6.3-8.2) g/dL Albumin 3.8 (3.5-5.0) g/dL Current Medications Generic Name Dose Route Start Last Admin Trade Name Freq PRN Reason Stop Dose Admin Acetaminophen 650 mg 02/07/25 20:20 Acetaminophen Tab 325 Mg Tab PO Q6HR PRN Mild Pain or Fever > 100.5 Escitalopram Oxalate 10 mg 02/08/25 09:00 02/08/25 08:55 Escitalopram 10 Mg Tab PO 10 mg DAILY MARTIN Administration Sodium Chloride 1,000 mls @ 20 mls/hr 02/07/25 20:30 02/07/25 20:33 Saline 0.9% IV 20 mls/hr .Q24H MARTIN Administration Ketorolac Tromethamine 15 mg 02/07/25 20:20 02/07/25 23:01 Ketorolac 15 Mg/Ml 1 Ml Vial IVP 02/10/25 20:22 15 mg Q6HR PRN Administration Moderate Pain (Scale 4 to 6) Morphine Sulfate 4 mg 02/07/25 20:20 Morphine Sulfate 4 Mg/Ml Syringe IV Q4HR PRN Severe Pain (Scale 7 to 10) Naloxone HCl 0.2 mg 02/07/25 20:20 Naloxone 0.4 Mg/Ml 1 Ml Vial IV Q2M PRN Opioid Reversal Ondansetron HCl 4 mg 02/07/25 20:20 Ondansetron 4 Mg/2 Ml Vial IVP Q8HR PRN Nausea And Vomiting Pantoprazole Sodium 40 mg 02/08/25 07:30 02/08/25 06:37 Pantoprazole 40 Mg Tablet PO Not Given AC-BID MARTIN Sucralfate 1 gm 02/08/25 09:00 02/08/25 08:56 Sucralfate 1 Gm Tab PO Not Given BID MARTIN Thiamine HCl 100 mg 02/08/25 12:45 Thiamine 100 Mg Tab PO DAILY MARTIN Intake and Output 02/07/25 02/08/25 02/08/25 22:59 06:59 14:59 Other: # Voids 2 1 3 Weight 72.575 kg 72.575 kg 02/08/25 07:30 02/08/25 07:30
[2025-02-09 00:47] LABS: Chol/HDL Ratio 3.27 Ratio; LDL Cholesterol,Calculated 67.6 mg/dL (0.0-131.0); Magnesium 2.1 mg/dL (1.5-2.4)
[2025-02-09 00:54] LABS: NT-Pro-B-Type Natriuretic Pept 223 pg/mL (0-125)
== END 2025-02-08 15:50 | disposition home or self-care (01) ==
LOC: EC 16:17 → 6NMEDSUR 20:23
PROVIDERS: ADMIT Internal Medicine; ATTEND Internal Medicine
DX: R55 Syncope and collapse (principal); R10.13 Epigastric pain; K21.9 Gastro-esophageal reflux disease without esophagitis; K44.9 Diaphragmatic hernia without obstruction or gangrene; F17.210 Nicotine dependence, cigarettes, uncomplicated; F41.9 Anxiety disorder, unspecified; Z79.899 Other long term (current) drug therapy; Z86.73 Personal history of transient ischemic attack (TIA), and cerebral infarction without residual deficits
CPT/HCPCS: 96361; 96374; 96375; 99285; 36415; 93005; 83880; 80061; 80053; 80048; 84443; 83605; 83690; 83735 ×2; 84484; 85025 ×2; 85610; 85730; 84703; 80320; 83036; 93880; 70450; 71275; 74174; G0378 ×2; J2405; J1885; Q9967

== ENCOUNTER → 2025-02-18 | Outpatient (CLI) | payer BC ==
--- NOTE | 2025-02-18 21:00 | EEG ---
ELECTROENCEPHALOGRAM REPORT CLINICAL HISTORY: This is a 49-year-old woman with reported syncopal episode. The video EEG is obtained to evaluate for seizure epileptiform activity. RELEVANT MEDICATION: Lexapro per the emergency technician report. EEG TYPE: This is a routine 21 channel EEG with video using the 10/20 electrode system. DESCRIPTION: Wakefulness is only obtained. During awake state, the posterior-dominant rhythm consists of [id number] voltage of 10 hertz activity that is well modulated and well sustained. There is no physiological stage 2 sleep architecture. There is no focal slowing. Interictal and ictal ; there is rare sharp and slow waves over the bilateral central parietal region that seems concerning for epileptiform discharges. There is no seizure noted during the study. ACTIVATION PROCEDURE: Photic stimulation did evoke a posterior driving response at multiple flash frequencies at 10 hertz as well as 12 hertz. Otherwise, no photic abnormality noted. Hyperventilation is not performed. CLINICAL INTERPRETATION: This is an abnormal routine EEG during awake state. The background is normal. There is concerning for rare epileptiform discharges over the central prior region bilaterally, which can increase risk for focal seizure. There is no seizure noted during the study. I highly recommend a prolonged EEG as an outpatient. Also, consider starting the patient on anti-epileptic seizure because of increased risk of seizures from her rare epileptiform discharges. Lastly, recommend the patient to follow up with the outpatient neurologist within 2-3 weeks. Clinical correlation is recommended. JAH / LISANDRA: [id number] /
== END ==
LOC: NEUROMAIN 07:39
PROVIDERS: ATTEND Student in an Organized Health Care Education/Training Program
DX: R55 Syncope and collapse (principal)
CPT/HCPCS: 95816